=== PATIENT | male | born 1955 | race Hispanic/Latino ===

== ENCOUNTER → 2019-08-12 | Day surgery (SDC) | payer MEDICARE, OTHER ==
[2019-08-07 15:46] LABS: BASOPHILS # (AUTO) 0.1 (0.0-0.1); BASOPHILS % 0.5 % (0.0-1.0); EOSINOPHILS # (AUTO) 0.1 (0.0-0.4); EOSINOPHILS % 1.3 % (0.0-6.0); HEMATOCRIT 46.8 % (38.2-49.6); LYMPHOCYTES # (AUTO) 1.8 (1.0-3.2); LYMPHOCYTES % 16.4 % (18.0-39.1); MEAN CORPUSCULAR HEMOGLOBIN 29.2 pg (28-32); MEAN CORPUSCULAR HGB CONC 32.1 g/dL (31-35); MEAN CORPUSCULAR VOLUME 91.2 fL (81-99); MONOCYTES # (AUTO) 0.9 (0.2-0.8); NEUTROPHILS # (AUTO) 8.1 (2.1-6.9); NEUTROPHILS % 73.3 % (38.7-80.0); PLATELET COUNT 258 x10e3/uL (140-360); RED BLOOD COUNT 5.13 x10e6/uL (4.3-5.7); RED CELL DISTRIBUTION WIDTH 12.9 % (11.7-14.4)
--- NOTE | 2019-08-07 15:48 | Diagnostic Imaging Report ---
Exam: Chest radiograph Clinical History: Preoperative clearance Findings: The cardiomediastinal silhouette and lungs are normal. The regional skeleton and soft tissue are unremarkable. There is no evidence of pleural effusion or pneumothorax. Impression: No radiographic evidence of acute cardiopulmonary disease. Signed by: Dr. Barney Burgess MD on 08/07/2019 3:45 PM
[~2019-08-12] MED LIST: B&O 60MG R/S 60 MG SUPP PR ONE; DEXAMETHASONE SOD PHOS INJ 4 MG/ML VIAL ONE; DOXAZOSIN MESYLA2 MG PO; ETOMIDATE 2 MG/ML 10 ML INJ IV ONE; GENTAMICIN 80MG/NS 100 ML 200 ML IV ONE; IOPAMIDOL 300MG/ML 50ML INFUS..BTL IV ONE; LIDOCAINE HCL 2% LOCAL INJ 5 ML SDV VIAL INJ ONE; ONDANSETRON HCL INJ 2MG/ML 2ML 2 MG/ML VIAL ONE; PIPER-TAZ 3.375 GM 50 ML ONE; SEVOFLURANE INHAL SOLN 250 ML PEN BTL ONE; ZYRTEC10 M3 PO
[2019-08-12 11:50] VITALS: BP 127/75
--- NOTE | 2019-08-13 02:37 | Operative Report ---
DATE OF PROCEDURE: 08/12/2019 SURGEON: Ramirez Liu MD PREOPERATIVE DIAGNOSES: 1. Urinary tract infections. 2. History of urolithiasis. 3. Elevated PSA. POSTOPERATIVE DIAGNOSES: 1. Urinary tract infections. 2. History of urolithiasis. 3. Elevated PSA. 4. Urethral stricture of the urethral meatus. OPERATIONS PERFORMED: 1. Transrectal ultrasonography interpretation, no radiologist present. 2. Interpretation for ultrasonographic guidance for needle biopsy of the prostate, no radiologist present. 3. Transrectal needle biopsy of the prostate (separate procedure performed for the elevated PSA). 4. Cystourethroscopy with calibration and dilation of urethral stricture (separate procedure performed for the diagnosis of stricture). 5. Cystourethroscopy with bilateral ureteral catheterization and retrograde ureteropyelography (separate procedure performed for the urinary tract infections and history of urolithiasis. 6. Interpretation of retrograde ureteropyelography, no radiologist present. 7. Supervision of fluoroscopy, no radiologist present. ANESTHESIA: General. COMPLICATIONS: None. CLINICAL SUMMARY: Pb Fernández is a 63-year-old man with the above preoperative diagnoses. He is brought for the above procedures. He was prescribed Cardura 2 mg daily for his BPH. The patient is brought to the operating room for the above procedures. He is aware of the risks of bleeding, infection, injury to adjacent structures, need for additional procedures and elected to proceed. OPERATIVE PROCEDURE IN DETAIL: Informed consent was verified. Pb Fernández was properly identified and taken to the operating room, placed on the cystoscopy table in supine position. Anesthesia was uneventfully begun. The patient was then carefully gently repositioned in dorsal lithotomy position with all pressure points well padded. Transrectal ultrasonography was performed with normal sonography was performed. There were no suspicious lesions. There was mild hypoechogenicity of the left peripheral zone especially in the region of the mid and apex. There were diffuse calcifications also a relatively large anterior cyst on the right-hand side at the region of the mid prostate. The seminal vesicles were unremarkable. Some calcifications were noted. The prostate capsule was smooth. Prostate volume was estimated at 44 mL. With ultrasonographic guidance, needle biopsies of the prostate were taken. A total of 12 biopsies were taken. These were placed in 6 different containers, The containers were differentiated right versus left and base versus mid versus apex. The cystoscope sheath with the visual obturator in place could not be placed into the patient's urethral meatus. This was then calibrated to 18-Belgian in size and progressively dilated to 26-Belgian in size. This then allowed the cystoscope sheath inserted into the urethra, which was otherwise unremarkable. Down to the level of the sphincteric region, which was normal and through the patient's prostate bed, which was significant for visually obstructing bilobar BPH with kissing lateral lobes. Panendoscopy of the bladder revealed no suspicious mucosal lesions, no tumors, no stones, and no diverticula, normally positioned configured ureteral orifices were identified. Ureteral catheter was used to cannulate each ureter and retrograde ureteropyelography was performed. Interpretation of retrograde ureteropyelography contrast was instilled in a retrograde fashion bilaterally. There were no tumors, no stones, and no diverticula. Unobstructed drainage was observed bilaterally fluoroscopically. J-hooking was noted bilaterally. The patient's bladder was drained. Cystoscope was withdrawn. Belladonna and opium suppository were placed revealing a 40 g prostate, smooth and non-fluctuant without any nodules. The patient was uneventfully reversed from anesthesia, taken to recovery room in stable condition. Explicit postop instructions were given and we will follow the patient up in the office, at which point in time uroflowmetry and bladder ultrasonography will be performed. Ramirez Liu MD [place]/MODL /[id number]
== END | disposition home or self-care (01) ==
LOC: OR 07:48
PROVIDERS: ATTEND Urology
DX: C61 Malignant neoplasm of prostate (principal); N41.0 Acute prostatitis; N41.1 Chronic prostatitis; N39.0 Urinary tract infection, site not specified; Z87.442 Personal history of urinary calculi; N35.911 Unspecified urethral stricture, male, meatal; N42.89 Other specified disorders of prostate; N42.83 Cyst of prostate; N40.1 Benign prostatic hyperplasia with lower urinary tract symptoms; N13.8 Other obstructive and reflux uropathy; G47.33 Obstructive sleep apnea (adult) (pediatric); K21.9 Gastro-esophageal reflux disease without esophagitis; K57.90 Diverticulosis of intestine, part unspecified, without perforation or abscess without bleeding; I10 Essential (primary) hypertension; Z01.810 Encounter for preprocedural cardiovascular examination; Z01.812 Encounter for preprocedural laboratory examination; Z01.818 Encounter for other preprocedural examination; Z11.59 Encounter for screening for other viral diseases
CPT/HCPCS: 36415; 52281; 55700; 71046; 74420; 76872; 76998; 85025; 87635; 88305; 93005; C1758; J1100; J1580; J2001; J2405; J2543; Q9967

== ENCOUNTER 2019-11-16 10:58 | Inpatient (IN) | payer MEDICARE ==
[2019-11-11 12:51] LABS: BASOPHILS % 0.6 % (0.0-1.0); EOSINOPHILS # (AUTO) 0.2 (0.0-0.4); EOSINOPHILS % 3.3 % (0.0-6.0); HEMATOCRIT 43.4 % (38.2-49.6); HEMOGLOBIN 14.1 g/dL (14.0-18.0); LYMPHOCYTES # (AUTO) 1.5 (1.0-3.2); LYMPHOCYTES % 22.1 % (18.0-39.1); MEAN CORPUSCULAR HEMOGLOBIN 29.4 pg (28-32); MEAN CORPUSCULAR HGB CONC 32.5 g/dL (31-35); MEAN CORPUSCULAR VOLUME 90.6 fL (81-99); MONOCYTES # (AUTO) 0.5 (0.2-0.8); MONOCYTES % 7.9 % (4.4-11.3); NEUTROPHILS # (AUTO) 4.3 (2.1-6.9); NEUTROPHILS % 65.6 % (38.7-80.0); PLATELET COUNT 216 x10e3/uL (140-360); RED BLOOD COUNT 4.79 x10e6/uL (4.3-5.7); RED CELL DISTRIBUTION WIDTH 12.9 % (11.7-14.4)
[2019-11-11 13:09] LABS: ALANINE AMINOTRANSFERASE 31 IU/L (0-55); ALBUMIN 3.9 g/dL (3.5-5.0); ALBUMIN/GLOBULIN RATIO 1.2 (0.8-2.0); ALKALINE PHOSPHATASE 74 IU/L (40-150); ANION GAP 16.1 mmol/L (8-16); BLOOD UREA NITROGEN 28 mg/dL (7-26); BUN/CREATININE RATIO 33 (6-25); CALCIUM 8.9 mg/dL (8.4-10.2); CARBON DIOXIDE 21 mmol/L (22-29); CHLORIDE 110 mmol/L (98-107); CREATININE, SERUM 0.84 mg/dL (0.72-1.25); EST GLOMERULAR FILTRATION RATE > 60 ML/MIN (60-); GLUCOSE 117 mg/dL (74-118); POTASSIUM 4.1 mmol/L (3.5-5.1); SODIUM 143 mmol/L (136-145)
--- NOTE | 2019-11-11 13:51 | Diagnostic Imaging Report ---
EXAMINATION: CHEST 2 VIEWS INDICATION: Pre-operative COMPARISON: Chest radiograph 08/07/2019 FINDINGS: LINES/TUBES:None LUNGS:The lungs are well-inflated. No focal consolidation or pulmonary edema. PLEURA:No pleural effusion or pneumothorax. MEDIASTINUM:The cardiomediastinal silhouette appears normal in size and shape. Atherosclerotic calcifications of the thoracic aorta. BONES/SOFT TISSUES:No acute osseous injury. ABDOMEN:No free air under the diaphragm. IMPRESSION: No focal pneumonia or pulmonary edema. Signed by: Sarah Vaughn MD on 11/11/2019 1:47 PM
[~2019-11-16] VITALS: Ht 170.2 cm; Wt 93.9 kg
[~2019-11-16 10:58] MED LIST changes: -B&O 60MG R/S 60 MG SUPP PR ONE; -DEXAMETHASONE SOD PHOS INJ 4 MG/ML VIAL ONE; -ETOMIDATE 2 MG/ML 10 ML INJ IV ONE; -GENTAMICIN 80MG/NS 100 ML 200 ML IV ONE; -IOPAMIDOL 300MG/ML 50ML INFUS..BTL IV ONE; -LIDOCAINE HCL 2% LOCAL INJ 5 ML SDV VIAL INJ ONE; -ONDANSETRON HCL INJ 2MG/ML 2ML 2 MG/ML VIAL ONE; -PIPER-TAZ 3.375 GM 50 ML ONE; -SEVOFLURANE INHAL SOLN 250 ML PEN BTL ONE
[2019-11-16] MEDS ORDERED: vitamin d3 PO (11:16)
[2019-11-16] MEDS ORDERED: CENTRUM SILVER1 EAC6 PO (11:17)
[2019-11-16] MEDS ORDERED: ZYRTEC10 M3 PO (11:17)
[2019-11-16] MEDS ORDERED: citracal PO (11:17)
[2019-11-16] MEDS ORDERED: MEGARED OMEGA-1 EAC3 PO (11:18)
[2019-11-16] MEDS ORDERED: GARLIC1 EAC1 PO (11:18)
[2019-11-16] MEDS ORDERED: CARDURA4 MG PO (11:19)
[2019-11-16] MEDS ORDERED: CEFAZOLIN SOD 1 GM/NS 50ML 50 ML IV ONE (11:53)
[2019-11-16] MEDS ORDERED: SEVOFLURANE INHAL SOLN 250 ML PEN BTL ONE (14:35)
[2019-11-16] MEDS ORDERED: PROPOFOL IV EMULSION 10 MG/ML 20 ML VIAL ONE (14:35)
[2019-11-16] MEDS ORDERED: ETOMIDATE 2 MG/ML 10 ML INJ IV ONE (14:35)
[2019-11-16] MEDS ORDERED: GLYCOPYRROLATE INJ 0.2 MG/ML VIAL ONE (14:35)
[2019-11-16] MEDS ORDERED: LIDOCAINE HCL 2% JELLY 5 ML TUBE ONE (14:35)
[2019-11-16] MEDS ORDERED: ROCURONIUM BROMIDE 10 MG/ML 5ML VIAL IV ONE (14:35)
[2019-11-16] MEDS ORDERED: ONDANSETRON HCL INJ 2MG/ML 2ML 2 MG/ML VIAL ONE (14:35)
[2019-11-16] MEDS ORDERED: DEXAMETHASONE SOD PHOS INJ 4 MG/ML VIAL ONE (14:35)
[2019-11-16] MEDS ORDERED: NEOSTIGMINE 1 MG/ML 10ML VIAL ONE (14:35)
[2019-11-16] MEDS ORDERED: DIPHENHYDRAMINE HCL INJ 50 MG/ML VIAL IM PRN (15:30)
[2019-11-16] MEDS ORDERED: NALOXONE HCL INJ 0.4 MG/ML AMP IV PRN (15:30)
[2019-11-16] MEDS ORDERED: ACETAMINOPHEN 1000 MG/100 ML IV PRN (15:30)
[2019-11-16] MEDS ORDERED: ONDANSETRON HCL INJ 2MG/ML 2ML 2 MG/ML VIAL IV PRN (15:30)
[2019-11-16] MEDS: SODIUM CHLORIDE 0.9% 250ML IRRIG IR SCH ×3 (16:00→23:45)
[2019-11-16] MEDS: MORPHINE SULFATE 1 MG/ML 30ML PCA IV PRN (16:16)
[2019-11-16 16:25] LABS: BASOPHILS # (AUTO) 0.1 (0.0-0.1); BASOPHILS % 0.3 % (0.0-1.0); EOSINOPHILS % 0.3 % (0.0-6.0); HEMATOCRIT 41.2 % (38.2-49.6); HEMOGLOBIN 13.1 g/dL (14.0-18.0); LYMPHOCYTES # (AUTO) 1.6 (1.0-3.2); LYMPHOCYTES % 10.4 % (18.0-39.1); MEAN CORPUSCULAR HEMOGLOBIN 29.2 pg (28-32); MEAN CORPUSCULAR HGB CONC 31.8 g/dL (31-35); MONOCYTES # (AUTO) 0.2 (0.2-0.8); MONOCYTES % 1.5 % (4.4-11.3); NEUTROPHILS # (AUTO) 13.7 (2.1-6.9); PLATELET COUNT 194 x10e3/uL (140-360); RED BLOOD COUNT 4.48 x10e6/uL (4.3-5.7); RED CELL DISTRIBUTION WIDTH 12.8 % (11.7-14.4)
[2019-11-16 16:42] LABS: ANION GAP 14.8 mmol/L (8-16); BLOOD UREA NITROGEN 33 mg/dL (7-26); BUN/CREATININE RATIO 41 (6-25); CALCIUM 8.1 mg/dL (8.4-10.2); CARBON DIOXIDE 21 mmol/L (22-29); CHLORIDE 108 mmol/L (98-107); CREATININE, SERUM 0.81 mg/dL (0.72-1.25); EST GLOMERULAR FILTRATION RATE > 60 ML/MIN (60-); GLUCOSE 151 mg/dL (74-118); POTASSIUM 3.8 mmol/L (3.5-5.1); SODIUM 140 mmol/L (136-145)
--- NOTE | 2019-11-16 16:55 | NUR ---
RECEIVED PATIENT FROM PACU. PATIENT A/O X3, EVEN RESPIRATIONS ON 2LNC. VITAL SIGNS STABLE. KENNEDY IN PLACE- STRAW URINE. RLQ STEPH DRAIN. ABDOMINAL DRESSING C/D/I. RIGHT NARE NGT LCWS. SCD'S/SALUD'S BILATERAL. ORIENTED PATIENT TO ROOM AND CALL LIGHT. BED LOW, WHEELS LOCKED, SIDE RAILS X2. CALL LIGHT IN REACH WILL CONTINUE TO MONITOR PATIENT.
[2019-11-16 17:00] VITALS: BP 110/61
[2019-11-16] MEDS: DOCUSATE SODIUM 100 MG CAP PO SCH (17:00)
[2019-11-16 17:18] VITALS: BP 110/61
[2019-11-16] MEDS ORDERED: FENTANYL CITRATE/PF 100MCG/2 ML INJ ONE (17:20)
[2019-11-16] MEDS ORDERED: MORPHINE SULFATE INJ 10 MG/ML ONE (17:20)
[2019-11-16] MEDS ORDERED: MIDAZOLAM HCL 2 MG/2 ML VIAL ONE (17:20)
[2019-11-16 17:30] VITALS: BP 110/61
[2019-11-16] MEDS: D5.45%NS/KCL 20MEQ 1,000 ML IV SCH ×2 (18:09→23:53)
--- NOTE | 2019-11-16 18:39 | Operative Report ---
DATE OF PROCEDURE: 11/16/2019 SURGEON: Ramirez Liu MD PREOPERATIVE DIAGNOSES: 1. High-grade prostate cancer. 2. Obstructive benign prostatic hypertrophy. POSTOPERATIVE DIAGNOSES: 1. High-grade prostate cancer. 2. Obstructive benign prostatic hypertrophy. 3. Cystotomy. OPERATION PERFORMED: 1. Cystourethroscopy (separate procedure performed for the obstructive benign prostatic hypertrophy). 2. Bilateral pelvic lymph node dissection (separate procedure performed for the prostate cancer). 3. Cystorectocele the (separate procedure performed for the cystotomy). JANITOR HELPER: Dr. Pito Liu. ANESTHESIA: General. CLINICAL SUMMARY: Pb Fernández is a 64-year-old man with high-grade prostate cancer. He has Towson grade 4 + 4 = 8 on the left and 3 + 3 = 6 on the right. The patient has a BPH with prostate size of 44 mL by transrectal sonography. He had a previous laparoscopic inguinal herniorrhaphy on the right-hand side. The patient is brought to the operating room today for pelvic lymphadenectomy and cystoscopy. He is aware of the risks of bleeding, infection, injury to adjacent structures, need for additional procedures and elected to proceed. He understands this procedure is diagnostic and not curative. It will affect our treatment plan and that if his lymph nodes are positive, radiotherapy will not be performed. The patient understood the risks and elected to proceed. He has already begun Lupron therapy. OPERATIVE PROCEDURE IN DETAIL: Informed consent was verified. Pb Fernández was properly identified, taken to the operating room, and placed on the operating table in supine position. Anesthesia was uneventfully begun. The patient's genitalia and abdomen were shaved, prepared, and draped in usual sterile fashion. A flexible cystoscope was inserted under direct vision, was guided down the unremarkable urethra through the normal sphincteric region through the prostate bed, which was significant for visually obstructing bilobar prostatic hypertrophy. Panendoscopy of the bladder revealed no suspicious mucosal lesions, no tumors, no stones, no diverticula. Normally positioned configured ureteral orifices were identified. There were grade 1 trabeculations. A Contreras catheter was placed. A midline incision was made carried through the scar that is just inferior to the umbilicus. We went through the abdominal wall fascia. We split the rectus muscles in the midline. There, we encountered the mesh. The mesh seemed to pass beyond midline towards the left side. The mesh was adherent to all the surrounding tissues. An extraperitoneal approach was impossible as the peritoneum was thinned and it was stuck into the mesh. We dissected at the level of the mesh and on the right-hand side. As we dissected across the mesh, we noticed that a cystotomy was performed. The cystostomy was unavoidable as the bladder was incorporated and tented up to the mesh and the bladder where it was attached to the wall was extremely thin. All the tissues were adherent and were really not discernible from each other. We identified a cystotomy. This allowed us to dissect the bladder free from the remainder of the mesh and from the surrounding adherent tissues and the bladder was closed in 2 layers utilizing 2-0 chromic sutures. The Contreras catheter was exchanged to a 24-[place] Contreras catheter with 15 mL of water placed in the 10 mL balloon. It was irrigated to and fro to ensure it worked properly and there was no leak. We then proceeded with completing the peritoneotomy. Peritoneotomies were performed bilaterally, where it was impossible to dissect the peritoneum off the iliac vessels and the region. We then utilized a self-retaining retractor. We packed back the intestines. We incised the peritoneum posteriorly in order to expose the iliac vessels. We obtained lymphatic tissue posterior to both external iliac veins. The obturator nerves were identified bilaterally in order to avoid injuring them. Hemoclips were utilized to control lymphatic channels. Copious irrigation was performed. Surgicel was placed in both obturator fossae. A David drain was placed through a separate stab incision, secured to the skin with a nylon suture. It was placed in such a way as to drain both obturator fossae as well as anterior to the bladder. We verified that the nasogastric tube that we asked the anesthesiologist to place due to the fact the peritoneotomy was performed and intestines needed to be packed away was in good position in the stomach. The omentum was brought down to cover the pelvis region. The rectus muscles were approximated with interrupted Vicryl suture. The fascia was approximated with heavy Vicryl suture in interrupted [id number] fashion. The skin was approximated with skin luz. Sterile dressings were applied. After irrigating the bladder via the catheter to ensure there were no clots, the patient was uneventfully reversed from anesthesia and taken to recovery room in stable condition. The unavoidable complication of cystotomy was caused rather severe reaction of the intraperitoneally placed mesh in performing the laparoscopic hernia repair. The cystotomy was recognized and repaired without complication. Estimated blood loss was 150 mL. Sponge, needle, and instrument counts were correct x2 at the end of the case. Ramirez Liu MD [facility]/MODL /[id number] cc: Bucky England MD
[2019-11-16 20:00] VITALS: BP 151/92
[2019-11-16] MEDS: CEFAZOLIN SOD 1 GM/NS 50ML 50 ML IV SCH (22:00)
[2019-11-17] VITALS (7 sets, daily range): BP systolic 110–145; BP diastolic 57–77
[2019-11-17] MEDS: SODIUM CHLORIDE 0.9% 250ML IRRIG IR SCH ×2 (03:35→07:30)
[2019-11-17] MEDS: CEFAZOLIN SOD 1 GM/NS 50ML 50 ML IV SCH ×3 (05:19→22:14)
[2019-11-17 05:42] LABS: BASOPHILS % 0.1 % (0.0-1.0); EOSINOPHILS % 0.3 % (0.0-6.0); HEMATOCRIT 41.3 % (38.2-49.6); HEMOGLOBIN 13.5 g/dL (14.0-18.0); LYMPHOCYTES % 8.1 % (18.0-39.1); MEAN CORPUSCULAR HEMOGLOBIN 30.1 pg (28-32); MEAN CORPUSCULAR HGB CONC 32.7 g/dL (31-35); MONOCYTES # (AUTO) 0.8 (0.2-0.8); MONOCYTES % 6.4 % (4.4-11.3); NEUTROPHILS # (AUTO) 10.1 (2.1-6.9); NEUTROPHILS % 84.8 % (38.7-80.0); PLATELET COUNT 195 x10e3/uL (140-360); RED BLOOD COUNT 4.49 x10e6/uL (4.3-5.7); RED CELL DISTRIBUTION WIDTH 12.7 % (11.7-14.4)
[2019-11-17 06:30] LABS: ANION GAP 13.1 mmol/L (8-16); BLOOD UREA NITROGEN 22 mg/dL (7-26); BUN/CREATININE RATIO 31 (6-25); CALCIUM 8.1 mg/dL (8.4-10.2); CARBON DIOXIDE 20 mmol/L (22-29); CHLORIDE 106 mmol/L (98-107); CREATININE, SERUM 0.72 mg/dL (0.72-1.25); EST GLOMERULAR FILTRATION RATE > 60 ML/MIN (60-); GLUCOSE 150 mg/dL (74-118); POTASSIUM 4.1 mmol/L (3.5-5.1); SODIUM 135 mmol/L (136-145)
--- NOTE | 2019-11-17 07:00 | NUR ---
RECEIVED BEDSIDE SHIFT REPORT FROM OFF GOING NIGHT NURSE. PATIENT IN STABLE CONDITION, NO S/S OF DISTRESS NOTED. RESPIRATIONS EVEN AND NON-LABORED. PATIENT ON FREIGHT WEIGHER PUMP. IV FLUIDS INFUSING, SITE ASYMPTOMATIC AND PATENT, TRANSPARENT DRESSING C/D/I. NG TUBE APPLIED TO LOW INTERMITTED SUCTION. KENNEDY IN PLACE AND PATENT. SCDs APPLIED. BED IN LOWEST POSITION AND LOCKED, SIDE RAILS X 2 , NON SKID SOCKS APPLIED. CALL LIGHT WITHIN REACH.
--- NOTE | 2019-11-17 07:03 | NUR ---
Bedside report and walking rounds completed with oncoming nurse. Patient in bed with call light within reach No issues or concerns noted.
[2019-11-17] MEDS ORDERED: SODIUM CHLORIDE 0.9% 250ML 0 ML ONE (07:51)
[2019-11-17] MEDS: DOCUSATE SODIUM 100 MG CAP PO SCH ×2 (08:24→16:34)
--- NOTE | 2019-11-17 08:24 | NUR ---
DISCONTINUED THE PATIENT'S NG TUBE THIS MORNING . PATIENT TOLERATED THE REMOVAL WELL. NO PAIN VOICED.NO S/S OF DISTRESS NOTED.
--- NOTE | 2019-11-17 10:11 | NUR ---
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 Pt underwent B/L PLND. Now recovering; pain controlled; PMH: Prostate cancer dx 09/2019, HTN, GERD, obesity, prostate , hx cigs Pshx: hernia repair Allergies; see emr Fh/SH; ; hx cigs meds; see MAR ROS; no f/c/s/N/V/D/VILLANUEVA/cp/sob/skin rash/confusion/vision changes/mood changes v/s; revd PE tired appearing anicteric ns1s2 mod bs soft; dressing in place; STEPH drain in place right pelvis; mederos with blood tinged urine scd; no edema skin dry n. affect labs/meds revd A/P: Prostate cancer - s/p Pelvic lymphadectomy with B/L PLND; STEPH drain in place; Obesity- screen for DM BMI 32.4 Nicotine dependence in remission- f/u outpt Pelvic pain- prn pain meds Prop: scd DIspo; monitor; f/u labs; TONIA ALONZO MD, PHD.
[2019-11-17] MEDS: D5.45%NS/KCL 20MEQ 1,000 ML IV SCH ×2 (10:37→18:17)
[2019-11-17 10:45] LABS: CHOL/HDL RATIO 3.2 (3.9-4.7)
--- NOTE | 2019-11-17 14:08 | NUR ---
WOUND CARE CONSULT PER DR. Sarah CARDOSO FOR OSTOMY TRAINING AND TEACHING WITH PATIENT AND ORDERS FOR OR PATIENT TO STATE PERISTOMAL SKIN CARE AND SAFETY AND ALSO INDEPENDENTLY CHANGE APPLIANCE TO LEFT LOWER ABDOMINAL QUADRANT STOMA PRIOR TO DISCHARGE TOMORROW PATIENT IS TO FOLLOW UP WITH OUTPATIENT WOUND CARE CENTER SATURDAY FOR FOLLOW UP WITH OSTOMY CARE AND ASSESSMENT OF SOURAV STOMAL AREA THESE EXTRA MEASURES ARE RELATED TO IRREGULAR STOMAL INCISION AND SHAPE AND SIZE OF STOMA/PERISTOMAL AREA POSES CHALLENGE TO PROPER APPLIANCE FITTING PATIENT AND AT BEDSIDE PRIMARILY NEPALI SPEAKING TRANSLATION WAS USED DURING OSTOMY TRAINING AND TEACHING INSTRUCTION WITH REPEAT OF SARKAR FACTORS AND STATEMENT OF UNDERSTANDING FROM AND PATIENT MADE STOMAL PATTERN MADE AND DEMONSTRATION OF APPLIANCE APPLICATION PERFORMED AND PATIENT MANIPULATED PARTS TO APPLIANCE AND PROPER SEAL AND CLOSURE PATIENT AND DEMONSTRATED PROPER EMPTYING OF APPLIANCE ARRANGEMENTS AND PLANS FOR FOLLOW UP VISIT WITH PATIENT AND FOR MORE OSTOMY TEACHING TO BE PERFORMED AT BEDSIDE TOMORROW PRIOR TO DISCHARGE Addendum: 11/17/19 at 1446 by Swapnil Mclean RN Amended: Links added. Addendum: 11/17/19 at 1554 by Swapnil Mclean RN PLEASE DISREGARD PREVIOUS NOTE REFERRING TO OSTOMY TRAINING WAS MISTAKEN ENTRY
[2019-11-17] MEDS: CHLORASEPTIC SPRAY 177 ML BTL MM PRN (15:39)
--- NOTE | 2019-11-17 19:26 | NUR ---
COMPLETED BEDSIDE SHIFT REPORT AND ROUNDING WITH THE ONCOMING NIGHT NURSE. PATIENT IN STABLE CONDITION, NO S/S OF DISTRESS NOTED. RESPIRATIONS EVEN AND NON-LABORED. PATIENT ON PHYSICIAN ASSISTANT PUMP. IV FLUIDS INFUSING, SITE ASYMPTOMATIC AND PATENT, TRANSPARENT DRESSING C/D/I. KENNEDY IN PLACE AND PATENT. SCDs APPLIED. BED IN LOWEST POSITION AND LOCKED, SIDE RAILS X 2 , NON SKID SOCKS APPLIED. CALL LIGHT WITHIN REACH.
[2019-11-17] MEDS ORDERED: SODIUM CHLORIDE 0.9% 250ML 250 ML ONE (22:36)
[2019-11-18] VITALS (7 sets, daily range): BP systolic 132–170; BP diastolic 66–84
[2019-11-18] MEDS: CHLORASEPTIC SPRAY 177 ML BTL MM PRN (00:34)
[2019-11-18] MEDS: D5.45%NS/KCL 20MEQ 1,000 ML IV SCH ×4 (01:15→18:29)
[2019-11-18] MEDS: MORPHINE SULFATE 1 MG/ML 30ML PCA IV PRN (01:15)
[2019-11-18] MEDS: CEFAZOLIN SOD 1 GM/NS 50ML 50 ML IV SCH ×3 (05:23→22:28)
--- NOTE | 2019-11-18 05:32 | NUR ---
KENNEDY CARE PROVIDED VIA CASTILE SOAP WIPES.
[2019-11-18 06:02] LABS: BASOPHILS # (AUTO) 0.1 (0.0-0.1); BASOPHILS % 0.5 % (0.0-1.0); EOSINOPHILS # (AUTO) 0.2 (0.0-0.4); EOSINOPHILS % 2.3 % (0.0-6.0); HEMATOCRIT 42.5 % (38.2-49.6); HEMOGLOBIN 13.6 g/dL (14.0-18.0); LYMPHOCYTES # (AUTO) 1.7 (1.0-3.2); LYMPHOCYTES % 16.1 % (18.0-39.1); MEAN CORPUSCULAR HEMOGLOBIN 29.2 pg (28-32); MEAN CORPUSCULAR VOLUME 91.4 fL (81-99); MONOCYTES # (AUTO) 0.9 (0.2-0.8); MONOCYTES % 8.2 % (4.4-11.3); NEUTROPHILS # (AUTO) 7.6 (2.1-6.9); NEUTROPHILS % 72.5 % (38.7-80.0); PLATELET COUNT 196 x10e3/uL (140-360); RED BLOOD COUNT 4.65 x10e6/uL (4.3-5.7); RED CELL DISTRIBUTION WIDTH 12.7 % (11.7-14.4)
[2019-11-18 06:21] LABS: ANION GAP 14.2 mmol/L (8-16); BLOOD UREA NITROGEN 13 mg/dL (7-26); BUN/CREATININE RATIO 17 (6-25); CALCIUM 8.2 mg/dL (8.4-10.2); CARBON DIOXIDE 23 mmol/L (22-29); CHLORIDE 103 mmol/L (98-107); CREATININE, SERUM 0.77 mg/dL (0.72-1.25); EST GLOMERULAR FILTRATION RATE > 60 ML/MIN (60-); GLUCOSE 114 mg/dL (74-118); POTASSIUM 4.2 mmol/L (3.5-5.1); SODIUM 136 mmol/L (136-145)
--- NOTE | 2019-11-18 07:00 | NUR ---
RECEIVED BEDSIDE SHIFT REPORT FROM OFF GOING NIGHT NURSE. PATIENT IN STABLE CONDITION, NO S/S OF DISTRESS NOTED. RESPIRATIONS EVEN AND NON-LABORED. PATIENT ON LSAT INSTRUCTOR PUMP. IV FLUIDS INFUSING, SITE ASYMPTOMATIC AND PATENT, TRANSPARENT DRESSING C/D/I. KENNEDY IN PLACE AND PATENT. SCDs APPLIED. BED IN LOWEST POSITION AND LOCKED, SIDE RAILS X 2 , NON SKID SOCKS APPLIED. CALL LIGHT WITHIN REACH.
--- NOTE | 2019-11-18 07:04 | NUR ---
IM- progress note O/N see below v/s; revd PE tired appearing anicteric ns1s2 mod bs soft; dressing in place; STEPH drain in place right pelvis; mederos with blood tinged urine scd; no edema skin dry n. affect labs/meds revd A/P: Prostate cancer - s/p Pelvic lymphadectomy with B/L PLND; STEPH drain in place; Obesity- screen for DM BMI 32.4 Nicotine dependence in remission- f/u outpt Pelvic pain- prn pain meds Prop: scd DIspo; monitor; f/u labs; 9-2 Hba1c/LDL 5.8/91; PreDM- use ADA diet; recheck in 3 months; TONIA ALONZO MD, PHD.
--- NOTE | 2019-11-18 07:18 | NUR ---
REPORT GIVEN TO DAYSHIFT NURSE. ALERT AND RESTING IN BED. NO SIGNS IV INFILTRATION. COMMUNICATIONS DEPARTMENT HEAD AT BEDSIDE WITH COMMUNICATIONS DEPARTMENT HEAD BUTTON WITHIN REACH. BED LOCKED AND IN LOW POSITION. CALL LIGHT WITHIN REACH.
[2019-11-18] MEDS: DOCUSATE SODIUM 100 MG CAP PO SCH ×2 (09:35→16:35)
--- NOTE | 2019-11-18 10:14 | NUR ---
per Dr. Recio do not advance diet until he advances diet.
[2019-11-18] MEDS ORDERED: BISACODYL 10 MG SUPP PR ONE (12:30)
--- NOTE | 2019-11-18 13:48 | NUR ---
client support associate pump discontinued per MD orders .
[2019-11-18] MEDS ORDERED: [UNRECOGNIZED DRUG - REMARK] NS PRN (14:15)
[2019-11-18] MEDS ORDERED: NON-FORMULARY MEDICATION NS PRN (14:15)
[2019-11-18] MEDS ORDERED: LORATADINE 10 MG TAB PO PRN (14:15)
[2019-11-18] MEDS: PANTOPRAZOLE SOD 40 MG TABEC PO SCH (17:34)
--- NOTE | 2019-11-18 17:41 | NUR ---
Skilled PT services not indicated at this time since patient is Mod I in functional mobility. thank you. Addendum: 11/18/19 at 1742 by Be monreal PT Amended: Links added.
[2019-11-18] MEDS: ACETAMINOPHEN/CODEINE 300MG - 30MG TAB PO PRN (18:33)
--- NOTE | 2019-11-18 19:10 | NUR ---
COMPLETED BEDSIDE SHIFT REPORT AND ROUNDING WITH THE ONCOMING NIGHT NURSE. PATIENT IN STABLE CONDITION, NO S/S OF DISTRESS NOTED. RESPIRATIONS EVEN AND NON-LABORED. IV FLUIDS INFUSING, SITE ASYMPTOMATIC AND PATENT, TRANSPARENT DRESSING C/D/I. KENNEDY IN PLACE AND PATENT. SCDs APPLIED. BED IN LOWEST POSITION AND LOCKED, SIDE RAILS X 2 , NON SKID SOCKS APPLIED. CALL LIGHT WITHIN REACH.
[2019-11-18] MEDS ORDERED: SODIUM CHLORIDE 0.9% 250ML 250 ML ONE (20:22)
[2019-11-19] VITALS (9 sets, daily range): BP systolic 127–160; BP diastolic 52–90
[2019-11-19] MEDS: BISACODYL 10 MG SUPP PR PRN (00:35)
[2019-11-19] MEDS: D5.45%NS/KCL 20MEQ 1,000 ML IV SCH ×3 (03:00→21:53)
--- NOTE | 2019-11-19 03:59 | NUR ---
KENNEDY CARE PROVIDED VIA CASTILE SOAP WIPES.
[2019-11-19 05:18] LABS: BASOPHILS % 0.3 % (0.0-1.0); EOSINOPHILS # (AUTO) 0.2 (0.0-0.4); EOSINOPHILS % 1.6 % (0.0-6.0); HEMATOCRIT 42.8 % (38.2-49.6); HEMOGLOBIN 13.9 g/dL (14.0-18.0); LYMPHOCYTES # (AUTO) 1.4 (1.0-3.2); LYMPHOCYTES % 10.4 % (18.0-39.1); MEAN CORPUSCULAR HEMOGLOBIN 29.2 pg (28-32); MEAN CORPUSCULAR HGB CONC 32.5 g/dL (31-35); MEAN CORPUSCULAR VOLUME 89.9 fL (81-99); MONOCYTES % 7.1 % (4.4-11.3); NEUTROPHILS # (AUTO) 10.9 (2.1-6.9); NEUTROPHILS % 80.1 % (38.7-80.0); PLATELET COUNT 215 x10e3/uL (140-360); RED BLOOD COUNT 4.76 x10e6/uL (4.3-5.7); RED CELL DISTRIBUTION WIDTH 12.4 % (11.7-14.4)
[2019-11-19] MEDS: CEFAZOLIN SOD 1 GM/NS 50ML 50 ML IV SCH ×3 (05:19→21:52)
[2019-11-19] MEDS: ACETAMINOPHEN/CODEINE 300MG - 30MG TAB PO PRN ×3 (05:25→22:55)
[2019-11-19 05:40] LABS: ANION GAP 14.3 mmol/L (8-16); BLOOD UREA NITROGEN 8 mg/dL (7-26); BUN/CREATININE RATIO 11 (6-25); CALCIUM 8.6 mg/dL (8.4-10.2); CARBON DIOXIDE 22 mmol/L (22-29); CHLORIDE 105 mmol/L (98-107); CREATININE, SERUM 0.76 mg/dL (0.72-1.25); EST GLOMERULAR FILTRATION RATE > 60 ML/MIN (60-); GLUCOSE 132 mg/dL (74-118); POTASSIUM 4.3 mmol/L (3.5-5.1); SODIUM 137 mmol/L (136-145)
--- NOTE | 2019-11-19 06:28 | NUR ---
IM- progress note O/N see below v/s; revd PE tired appearing anicteric ns1s2 mod bs soft; luz on abdomen; STEPH drain in place right pelvis; mederos with blood tinged urine scd; no edema skin dry n. affect labs/meds revd A/P: Prostate cancer - s/p Pelvic lymphadectomy with B/L PLND; STEPH drain in place; Obesity- screen for DM BMI 32.4 Nicotine dependence in remission- f/u outpt Pelvic pain- prn pain meds Prop: scd DIspo; monitor; f/u labs; 9-2 Hba1c/LDL 5.8/91; PreDM- use ADA diet; recheck in 3 months; 9-3 Uncontrolled HTN- titrate meds; Urine output good. on liq diet. LN reactive only; no malignancy; Likely ileus- reduce narcotics; encouraged to ambulate in room; stool softners, rec'd rectal suppositories yesterday; monitor closely today; TONIA ALONZO MD, PHD.
--- NOTE | 2019-11-19 07:00 | NUR ---
RECEIVED BEDSIDE SHIFT REPORT FROM OFF GOING NIGHT NURSE. PATIENT IN STABLE CONDITION, NO S/S OF DISTRESS NOTED. RESPIRATIONS EVEN AND NON-LABORED. IV FLUIDS INFUSING, SITE ASYMPTOMATIC AND PATENT, TRANSPARENT DRESSING C/D/I. KENNEDY IN PLACE AND PATENT. SCDs APPLIED. BED IN LOWEST POSITION AND LOCKED, SIDE RAILS X 2 , NON SKID SOCKS APPLIED. CALL LIGHT WITHIN REACH.
--- NOTE | 2019-11-19 07:05 | NUR ---
REPORT GIVEN TO DAYSHIFT NURSE. ALERT AND RESTING IN BED. NO SIGNS IV INFILTRATION. BED LOCKED AND IN LOW POSITION. CALL LIGHT WITHIN REACH.
[2019-11-19] MEDS ORDERED: SENNA-S TABLET PO SCH (07:30)
[2019-11-19] MEDS: PANTOPRAZOLE SOD 40 MG TABEC PO SCH (08:22)
[2019-11-19] MEDS: DOCUSATE SODIUM LIQD 100 MG/10 ML UDC PO SCH ×2 (08:22→17:29)
[2019-11-19] MEDS ORDERED: DOCUSATE SODIUM LIQD 100 MG/10 ML UDC NG SCH (09:00)
--- NOTE | 2019-11-19 09:45 | NUR ---
PATIENT UP AMBULATING IN THE HALLWAY.
--- NOTE | 2019-11-19 10:24 | NUR ---
DR. ALONZO NOTIFIED ABOUT AN INCREASE IN THE PATIENTS WBC INCREASE, AWAITING ORDERS.
--- NOTE | 2019-11-19 19:15 | NUR ---
COMPLETED BEDSIDE SHIFT REPORT AND ROUNDING WITH THE ONCOMING NIGHT NURSE. PATIENT IN STABLE CONDITION, NO S/S OF DISTRESS NOTED. RESPIRATIONS EVEN AND NON-LABORED. IV FLUIDS INFUSING, SITE ASYMPTOMATIC AND PATENT, TRANSPARENT DRESSING C/D/I. KENNEDY IN PLACE AND PATENT. PATIENT PASSING GAS AWAITING BM. SCDs APPLIED. BED IN LOWEST POSITION AND LOCKED, SIDE RAILS X 2 , NON SKID SOCKS APPLIED. CALL LIGHT WITHIN REACH.
[2019-11-20] VITALS (7 sets, daily range): BP systolic 131–175; BP diastolic 71–88
[2019-11-20] MEDS: CEFAZOLIN SOD 1 GM/NS 50ML 50 ML IV SCH ×3 (05:10→21:08)
[2019-11-20 06:02] LABS: BASOPHILS # (AUTO) 0.1 (0.0-0.1); BASOPHILS % 0.4 % (0.0-1.0); EOSINOPHILS # (AUTO) 0.3 (0.0-0.4); EOSINOPHILS % 2.1 % (0.0-6.0); HEMATOCRIT 43.2 % (38.2-49.6); HEMOGLOBIN 14.2 g/dL (14.0-18.0); LYMPHOCYTES # (AUTO) 1.3 (1.0-3.2); LYMPHOCYTES % 9.4 % (18.0-39.1); MEAN CORPUSCULAR HEMOGLOBIN 29.6 pg (28-32); MEAN CORPUSCULAR HGB CONC 32.9 g/dL (31-35); MONOCYTES # (AUTO) 0.8 (0.2-0.8); MONOCYTES % 5.6 % (4.4-11.3); NEUTROPHILS # (AUTO) 11.5 (2.1-6.9); NEUTROPHILS % 81.9 % (38.7-80.0); PLATELET COUNT 269 x10e3/uL (140-360); RED CELL DISTRIBUTION WIDTH 12.5 % (11.7-14.4)
[2019-11-20 06:22] LABS: BLOOD UREA NITROGEN 9 mg/dL (7-26); BUN/CREATININE RATIO 10 (6-25); CARBON DIOXIDE 20 mmol/L (22-29); CHLORIDE 106 mmol/L (98-107); CREATININE, SERUM 0.87 mg/dL (0.72-1.25); EST GLOMERULAR FILTRATION RATE > 60 ML/MIN (60-); GLUCOSE 204 mg/dL (74-118); SODIUM 139 mmol/L (136-145)
--- NOTE | 2019-11-20 06:41 | NUR ---
IM- progress note O/N see below v/s; revd PE tired appearing anicteric ns1s2 mod bs soft; luz on abdomen; STEPH drain in place right pelvis; mederos with blood tinged urine scd; no edema skin dry n. affect labs/meds revd A/P: Prostate cancer - s/p Pelvic lymphadectomy with B/L PLND; STEPH drain in place; Obesity- screen for DM BMI 32.4 Nicotine dependence in remission- f/u outpt Pelvic pain- prn pain meds Prop: scd DIspo; monitor; f/u labs; 9-2 Hba1c/LDL 5.8/91; PreDM- use ADA diet; recheck in 3 months; 9-3 Uncontrolled HTN- titrate meds; Urine output good. on liq diet. LN reactive only; no malignancy; Likely ileus- reduce narcotics; encouraged to ambulate in room; stool softners, rec'd rectal suppositories yesterday; monitor closely today; 9-4 passing flatus; augment turner regimen; cont ambulation; check KUB= Ileus TONIA ALONZO MD, PHD.
[2019-11-20] MEDS: D5.45%NS/KCL 20MEQ 1,000 ML IV SCH ×2 (08:29→18:17)
--- NOTE | 2019-11-20 09:17 | Diagnostic Imaging Report ---
Abdomen one view INDICATION: ^prostate cancer ^[id number] ^[id number] ^Y Comparison: None available. Discussion: Multiple dilated small bowel loops are noted throughout the abdomen concerning for obstruction or ileus. Colon is not well identified. Postsurgical changes of the pelvis are identified. IMPRESSION: Diffuse dilated small bowel loops are concerning for ileus versus obstruction. Consider cross-sectional imaging for further evaluation. Signed by: Christiano Torres MD on 11/20/2019 9:14 AM
--- NOTE | 2019-11-20 09:21 | NUR ---
Paged to notify of KUB results
[2019-11-20] MEDS: MAGNESIUM HYDROXIDE 30 ML UDC PO SCH (09:27)
[2019-11-20] MEDS: PANTOPRAZOLE SOD 40 MG TABEC PO SCH (09:27)
[2019-11-20] MEDS: DOCUSATE SODIUM LIQD 100 MG/10 ML UDC PO SCH ×2 (09:27→15:55)
[2019-11-20] MEDS: SENNOSIDES 8.6 MG TAB PO SCH ×2 (09:27→15:55)
--- NOTE | 2019-11-20 10:30 | NUR ---
Repaged to notify of KUB results
--- NOTE | 2019-11-20 10:51 | NUR ---
Dr. Hayden aware of KUB results. Per "Encourage patient to ambulate"
[2019-11-20] MEDS: BISACODYL 10 MG SUPP PR PRN ×2 (18:12→18:17)
[2019-11-20] MEDS: CLINDAMYCIN 300MG 50 ML IV SCH (18:37)
--- NOTE | 2019-11-20 19:10 | NUR ---
Report given to oncoming nurse of patient's status. No s/s of acute distress noted. Side rails upx2, call light within reach, bed alarm on.
[2019-11-21] VITALS (8 sets, daily range): BP systolic 115–162; BP diastolic 64–90
[2019-11-21] MEDS: D5.45%NS/KCL 20MEQ 1,000 ML IV SCH ×4 (02:41→20:47)
[2019-11-21] MEDS: CLINDAMYCIN 300MG 50 ML IV SCH ×3 (02:41→17:11)
[2019-11-21] MEDS: CEFAZOLIN SOD 1 GM/NS 50ML 50 ML IV SCH ×3 (06:01→22:14)
[2019-11-21] MEDS: MAGNESIUM HYDROXIDE 30 ML UDC PO SCH (08:41)
[2019-11-21] MEDS: PANTOPRAZOLE SOD 40 MG TABEC PO SCH (08:56)
[2019-11-21] MEDS: SENNOSIDES 8.6 MG TAB PO SCH ×2 (08:56→17:11)
[2019-11-21] MEDS: DOCUSATE SODIUM 100 MG CAP PO SCH ×2 (10:00→17:11)
--- NOTE | 2019-11-21 11:03 | NUR ---
IM- progress note O/N see below v/s; revd PE tired appearing anicteric ns1s2 mod bs soft; luz on abdomen; STEPH drain in place right pelvis; mederos with blood tinged urine scd; no edema skin dry n. affect labs/meds revd A/P: Prostate cancer - s/p Pelvic lymphadectomy with B/L PLND; STEPH drain in place; Obesity- screen for DM BMI 32.4 Nicotine dependence in remission- f/u outpt Pelvic pain- prn pain meds Prop: scd DIspo; monitor; f/u labs; 9-2 Hba1c/LDL 5.8/91; PreDM- use ADA diet; recheck in 3 months; 9-3 Uncontrolled HTN- titrate meds; Urine output good. on liq diet. LN reactive only; no malignancy; Likely ileus- reduce narcotics; encouraged to ambulate in room; stool softners, rec'd rectal suppositories yesterday; monitor closely today; 9-4 passing flatus; augment turner regimen; cont ambulation; check KUB= Ileus 9-5 cont care; continue bowel regimen. Had several BMs. use milk mag PRN only. TONIA ALONZO MD, PHD.
--- NOTE | 2019-11-21 11:11 | Diagnostic Imaging Report ---
EXAM: Abdomen Radiograph INDICATION: FOLLOW UP ILEUS AND COMPARE TO PRIOR COMPARISON: KUB dated 11/20/2019.. FINDINGS: TUBES and LINES: None. LOWER CHEST: No abnormalities in the lower chest. ABDOMEN: Again seen are multiple dilated small bowel loops are noted throughout the abdomen, slightly improved from prior exam. No pneumoperitoneum. No abnormal abdominal calcifications. BONES AND SOFT TISSUES: No acute osseous lesion. Surgical clips and luz are seen in the lower abdomen and pelvis IMPRESSION: Slightly improved multiple dilated small bowel could be due to postoperative ileus. Recommend follow-up KUB to assess interval change and exclude obstruction. Signed by: Robert Singh MD on 11/21/2019 11:07 AM
--- NOTE | 2019-11-21 14:45 | NUR ---
Nutrition Intervention Note RD Recommendation(s) for Physician: -Recommend advancing to GI soft/ADA diet when medically appropriate -Recommend Ensure clear BID for adequacy while on clear liquid diet -If diet is unable to be advanced, consider alternative means of nutrition Plan of Care: RD following, monitoring for tolerance and adequacy Nutrition reason for involvement: Length of stay and NPO/clear liquid diet > [address] Assessment (11/21/19) Pt is a 64 year old male admitted with prostate cancer. Pt has a pelvic lymphadenectomy, eden cysto, and bladder repair procedure performed on 11/15. Pt has been on an NPO/clear liquid diet for 5 days. MD note on 11/19 indicates pt had a KUB to check for ileus. Pt reports is tolerating clear liquids at this time and was eating at least 75% of his meals prior to admission. No weight loss reported and pt stated he usually weighs 210 lbs. Pt currently has a weight of 207 lbs in chart. Pt reports some N/V yesterday. No chewing/swallowing issues. Recommend advancing diet when medically appropriate. Will continue to monitor. Principal Problems/Diagnoses: prostate cancer PMH: Prostate cancer dx 09/2019, HTN, GERD, obesity, prostate GI: last recorded BM 11/20 Skin: no pressure ulcers Labs: (11/20) Na 149, K 4.0, BUN 9, Cr 0.87,Glu 204, Ca 9.0 Meds: colace, antibiotics, protonix, zofran, senokot, milk of magnesiua Ht: 67 in Wt: 207 lbs BMI: 32.4 kg/m2 IBW: 148 lbs Malnutrition Evaluation (11/21/19) The patient does not meet criteria for a specified degree of malnutrition at this time. Will re-evaluate at follow-up as appropriate. Energy intake: <50% of estimated energy requirements for 5 days Weight loss: No weight loss reported Fat loss: no loss per observation Muscle loss: no loss per observation Supporting Evidence: Fluid accumulation: unable to evaluate Functional Status: unable to evaluate Nutrition Prescription (Diet Order): clear liquids Estimated Nutritional Needs: 5737-0942 calories/day (22-25 kcal/kg IBW) 80-100 g protein/day (1.2-1.5 g pro/kg IBW) Diet Adequacy: Not meeting calorie needs, Not meeting protein needs Tolerance: Tolerating PO Diet Education Needs Assessment:. Diet education not indicated, patient on temporary/transition diet. Nutrition Care Level: moderate Nutrition Diagnosis: Inadequate energy intake related to decreased ability to consume sufficient energy as evidenced by insufficient energy intake from diet compared to needs Goal: Patient will meet 75-100% of estimated needs by follow up Progress: N/A Interventions: -fiber and carbohydrate -modified diet, Commercial beverage Monitoring/Evaluation: -Total energy intake, Total protein intake, Modified diet, Liquid supplement, Weight change Signed: Chanel Najera RD, LD
[2019-11-21] MEDS ORDERED: ONDANSETRON HCL 4 MG ORAL DISINTEGRATING TAB PO PRN (18:15)
--- NOTE | 2019-11-21 19:48 | NUR ---
BEDSIDE SHIFT REPORT RECEIVED FROM DAY RN. PT IS ALERT AND ORIENTEDX3. RESPIRATIONS ARE EVEN AND UNLABORED. 02 AT 2L PER N/C - PT USES ON AND OFF. CPAP ON AT BEDTIME. MIDLINE INCISION DRY AND INTACT. STEPH DRAIN CHARGED. PIV LEFT FA 20G - D51/2 + 20 KCL INFUSING AT 125 ML/HR. SITE HEALTHY. KENNEDY TO GRAVITY. KENNEDY DRAINING CLEAR YELLOW URINE. CALL LIGHT WITHIN REACH. BED LOCKED ND IN LOW POSITION.
[2019-11-22] VITALS (7 sets, daily range): BP systolic 108–131; BP diastolic 57–77
--- NOTE | 2019-11-22 00:38 | NUR ---
PT C/O OF ACID REFLUX. PT BURPING AND PASSING GAS. PT AMBULATE IN [place]. ZOFRAN GIVEN ORDERED FOR NAUSEA. WILL MONITOR FOR RELIEF.
[2019-11-22] MEDS: CLINDAMYCIN 300MG 50 ML IV SCH ×3 (02:01→16:59)
[2019-11-22 06:06] LABS: BASOPHILS # (AUTO) 0.1 (0.0-0.1); BASOPHILS % 0.8 % (0.0-1.0); EOSINOPHILS # (AUTO) 0.5 (0.0-0.4); EOSINOPHILS % 6.5 % (0.0-6.0); HEMATOCRIT 38.1 % (38.2-49.6); HEMOGLOBIN 12.3 g/dL (14.0-18.0); LYMPHOCYTES # (AUTO) 1.6 (1.0-3.2); LYMPHOCYTES % 20.3 % (18.0-39.1); MEAN CORPUSCULAR HEMOGLOBIN 29.4 pg (28-32); MEAN CORPUSCULAR HGB CONC 32.3 g/dL (31-35); MEAN CORPUSCULAR VOLUME 90.9 fL (81-99); MONOCYTES # (AUTO) 0.8 (0.2-0.8); MONOCYTES % 10.4 % (4.4-11.3); NEUTROPHILS # (AUTO) 4.8 (2.1-6.9); NEUTROPHILS % 61.6 % (38.7-80.0); PLATELET COUNT 277 x10e3/uL (140-360); RED BLOOD COUNT 4.19 x10e6/uL (4.3-5.7); RED CELL DISTRIBUTION WIDTH 12.3 % (11.7-14.4)
[2019-11-22 06:12] LABS: ANION GAP 13.4 mmol/L (8-16); BLOOD UREA NITROGEN 7 mg/dL (7-26); BUN/CREATININE RATIO 9 (6-25); CARBON DIOXIDE 25 mmol/L (22-29); CHLORIDE 104 mmol/L (98-107); CREATININE, SERUM 0.79 mg/dL (0.72-1.25); EST GLOMERULAR FILTRATION RATE > 60 ML/MIN (60-); GLUCOSE 117 mg/dL (74-118); POTASSIUM 4.4 mmol/L (3.5-5.1); SODIUM 138 mmol/L (136-145)
[2019-11-22] MEDS: CEFAZOLIN SOD 1 GM/NS 50ML 50 ML IV SCH ×3 (06:20→21:59)
[2019-11-22] MEDS: DOCUSATE SODIUM 100 MG CAP PO SCH ×2 (08:36→14:24)
[2019-11-22] MEDS: SENNOSIDES 8.6 MG TAB PO SCH ×2 (08:36→14:24)
--- NOTE | 2019-11-22 08:46 | NUR ---
STEPH drain removed per Dr Liu. IVF stopped. diet advanced to ADA and tray ordered.
[2019-11-22] MEDS: PANTOPRAZOLE SOD 40 MG TABEC PO SCH (08:47)
--- NOTE | 2019-11-22 09:44 | NUR ---
IM- progress note O/N see below v/s; revd PE tired appearing anicteric ns1s2 mod bs soft; luz on abdomen; STEPH drain in place right pelvis; mederos with blood tinged urine scd; no edema skin dry n. affect labs/meds revd A/P: Prostate cancer - s/p Pelvic lymphadectomy with B/L PLND; STEPH drain in place; Obesity- screen for DM BMI 32.4 Nicotine dependence in remission- f/u outpt Pelvic pain- prn pain meds Prop: scd DIspo; monitor; f/u labs; 9-2 Hba1c/LDL 5.8/91; PreDM- use ADA diet; recheck in 3 months; 9-3 Uncontrolled HTN- titrate meds; Urine output good. on liq diet. LN reactive only; no malignancy; Likely ileus- reduce narcotics; encouraged to ambulate in room; stool softners, rec'd rectal suppositories yesterday; monitor closely today; 9-4 passing flatus; augment turner regimen; cont ambulation; check KUB= Ileus 9-5 cont care; continue bowel regimen. Had several BMs. use milk mag PRN only. 9-6 improving; drain out; remains with mederos; TONIA ALONZO MD, PHD.
[2019-11-22] MEDS ORDERED: MAGNESIUM HYDROXIDE 30 ML UDC PO PRN (11:06)
--- NOTE | 2019-11-22 12:18 | Diagnostic Imaging Report ---
EXAM: Abdomen Radiograph INDICATION: follow up ileus COMPARISON: KUB dated 11/20/2019 11/21/2019. FINDINGS: TUBES and LINES: None. LOWER CHEST: No abnormalities in the lower chest. ABDOMEN: Multiple dilated small bowel loops have improved from prior exam. No pneumoperitoneum. No abnormal abdominal calcifications. BONES AND SOFT TISSUES: No acute osseous lesion. Surgical clips and luz are seen in the lower abdomen and pelvis IMPRESSION: Improved multiple dilated small bowel suggestive of improving postoperative ileus. Signed by: Robert Singh MD on 11/22/2019 12:14 PM
--- NOTE | 2019-11-22 19:45 | NUR ---
BEDSIDE SHIFT REPORT RECEIVED FROM DAY RN. PT IS ALERT AND ORIENTED X3. RESPIRATIONS ARE REGULAR AND EVEN. 20G SL LEFT FA. KENNEDY TO GRAVITY. URINE IS CLEAR YELLOW. ABDOMINAL INCISION KUSUM DRY AND INTACT. STEPH DRAIN D/C YESTERDAY. PT TOLERATING ADA DIET WELL. PT REPORTS DOES NOT CHECK HIS BLOOD SUGAR AT HOME. PT DENIES PAIN PT WANTING TO GO HOME. PT HAD MODERATE AMOUNT OF BROWN SOFT FORMED STOOL. CALL LIGHT WITHIN REACH. BED IN LOW POSITION.
[2019-11-23] VITALS: BP 118/66
[2019-11-23] MEDS: CLINDAMYCIN 300MG 50 ML IV SCH ×2 (01:54→11:00)
[2019-11-23] MEDS ORDERED: SODIUM CHLORIDE 0.9% 250ML 250 ML ONE (02:07)
[2019-11-23 04:00] VITALS: BP 113/58
[2019-11-23] MEDS: CEFAZOLIN SOD 1 GM/NS 50ML 50 ML IV SCH (05:50)
[2019-11-23] MEDS: DOCUSATE SODIUM 100 MG CAP PO SCH ×2 (08:27→09:00)
[2019-11-23] MEDS: SENNOSIDES 8.6 MG TAB PO SCH ×2 (08:27→09:00)
[2019-11-23] MEDS: PANTOPRAZOLE SOD 40 MG TABEC PO SCH (08:27)
[2019-11-23 08:30] VITALS: BP 138/74
[2019-11-23 08:52] VITALS: BP 138/74
[2019-11-23] MEDS ORDERED: PROTONIX40 MG/ML PO (10:39)
[2019-11-23] MEDS ORDERED: COLACE100 MG PO (10:39)
[2019-11-23] MEDS ORDERED: SENOKOT8.6 MG PO (10:39)
--- NOTE | 2019-11-23 10:41 | NUR ---
D/.C summary Principal Dx: Prostate cancer - s/p Pelvic lymphadectomy with B/L PLND; STEPH drain in place; Ileus PredM Secondary Dx: Obesity- screen for DM BMI 32.4 Nicotine dependence in remission- f/u outpt Pelvic pain- prn pain meds Prop: scd DIspo; monitor; f/u labs; 9-2 Hba1c/LDL 5.8/91; PreDM- use ADA diet; recheck in 3 months; 9-3 Uncontrolled HTN- titrate meds; Urine output good. on liq diet. LN reactive only; no malignancy; Likely ileus- reduce narcotics; encouraged to ambulate in room; stool softners, rec'd rectal suppositories yesterday; monitor closely today; 9-4 passing flatus; augment turner regimen; cont ambulation; check KUB= Ileus 9-5 cont care; continue bowel regimen. Had several BMs. use milk mag PRN only. 9-6 improving; drain out; remains with mederos; d/c home stable d/c>35mins F/u PCP 2 days and 1 -2 weeks TONIA ALONZO MD, PHD.
[2019-11-23] MEDS ORDERED: TYLENOL # 31 EA (11:15)
[2019-11-23] MEDS ORDERED: BACTRIM DS TAB1 EACH PO (11:16)
[2019-11-23 12:31] VITALS: BP 138/74
--- NOTE | 2019-11-23 13:05 | NUR ---
Left Upper arm Picc line discontinued. No signs of infiltration noted. 2x2 gauze and coban placed. Taken via wheelchair to personal car. AAOx4 to time, person, place, situation. Respirations even and unlabored.Contreras catheter on leg bag. Discharge instructions, rx, and all personal belongings taken with patient. Addendum: 11/23/19 at 1426 by AMINTA SALAS RN ERROR
--- NOTE | 2019-11-23 13:05 | NUR ---
Left FA IV discontinued. No signs of infiltration noted. 2x2 gauze and coban placed. Taken via wheelchair to personal car. AAOx4 to time, person, place, situation. Respirations even and unlabored.Contreras catheter on leg bag. Discharge instructions, rx, and all personal belongings taken with patient.
== END 2019-11-23 13:06 | disposition home or self-care (01) | DRG 715 ==
LOC: OR 10:58 → PACU V 15:26 → MED/SURG 17:01
PROVIDERS: ADMIT Internal Medicine; ATTEND Internal Medicine
PROC: 0TJB8ZZ Inspection of Bladder, Via Natural or Artificial Opening Endoscopic (ICD-10-PCS; 2019-11-16)
PROC: 0TQB0ZZ Repair Bladder, Open Approach (ICD-10-PCS; 2019-11-16)
PROC: 07BC0ZX Excision of Pelvis Lymphatic, Open Approach, Diagnostic (ICD-10-PCS; principal; 2019-11-16 13:00)
DX: C61 Malignant neoplasm of prostate (principal); N13.8 Other obstructive and reflux uropathy; Z87.442 Personal history of urinary calculi; E66.9 Obesity, unspecified; Z11.59 Encounter for screening for other viral diseases; Z68.32 Body mass index [BMI] 32.0-32.9, adult; N40.1 Benign prostatic hyperplasia with lower urinary tract symptoms
CPT/HCPCS: 36415; 71046; 74018; 80048; 80053; 80061; 83036; 83735; 85025; 86850; 86900; 88305; 93005; 97139; 99251; J0690; J1100; J2001; J2250; J2270; J2405; J2710; J3010; J7050; Q0162; U0002

== ENCOUNTER 2019-12-02 19:53 | Emergency (ER) | payer MEDICARE ==
[~2019-12-02] VITALS: Ht 170.2 cm; Wt 93.9 kg
[~2019-12-02 19:53] MED LIST changes: +BACTRIM DS TAB1 EACH PO; +CARDURA4 MG PO; +CENTRUM SILVER1 EAC6 PO; +COLACE100 MG PO; +GARLIC1 EAC1 PO; +MEGARED OMEGA-1 EAC3 PO; +PROTONIX40 MG/ML PO; +SENOKOT8.6 MG PO; +TYLENOL # 31 EA; +citracal PO; +vitamin d3 PO
--- NOTE | 2019-12-02 20:44 | Emergency Department Note ---
History of Present Illnes History of Present Illness Chief Complaint: Genitourinary History of Present Illness This is a 64 year old male PRESENTS TO THE ER C/O LEAKING KENNEDY CATHETER ONSET YESTERDAY; PT REPORTS PAIN TO MEATUS OF PENIS; PT RPEORTS SMALL AMOUNT OG URINE LEAKING YESTERDAY AND LEAKING INCREASED TODAY; PT HAD SX BY DR. Bella WILSON AND DX ON 10/30/19; NAD NOTED AT THIS TIME; . Historian: Patient Arrival Mode: Car Onset (how long ago): day(s) (1) Location: PENIS Quality: LEAKING AROUND KENNEDY, URINE NOT PASSING INTO BAG Radiation: Reports non-radiation Severity: mild Onset quality: gradual Duration (how long): day(s) (1) Timing of current episode: constant Progression: worsening Context: Reports recent surgery (BLADDER SURGERY) Relieving factors: none Exacerbating factors: none Associated symptoms: Reports denies other symptoms Past Medical/Family History Physician Review I have reviewed the patient's past medical and family history. Any updates have been documented here. Past Medical History Recent Fever: No Clinical Suspicion of Infectio: No New/Unexplained Change in Ment: No Past Medical History: Hypertension, Kidney Stones, GERD Other Medical History: SLEEP APNEA PROSTATE CA DIVERTICULOSIS Past Surgical History: Hernia Repair Other Surgery: LYMPH NODES REMOVAL OF PROSTATE Social History Smoking Cessation: Never Smoker Alcohol Use: None Any Illegal Drug Use: No Family History Family history of heart diseas: No Review of Systems Review of Systems Constitutional: Reports no symptoms EENTM: Reports no symptoms Cardiovascular: Reports no symptoms Respiratory: Reports no symptoms Gastrointestinal: Reports no symptoms Genitourinary: Reports as per HPI Musculoskeletal: Reports no symptoms Integumentary: Reports no symptoms Neurological: Reports no symptoms Psychological: Reports no symptoms Endocrine: Reports no symptoms Hematological/Lymphatic: Reports no symptoms Physical Exam Related Data Allergies: Coded Allergies: No Known Allergies (Unverified , 08/04/19) Triage Vital Signs Vital Signs Date Time Temp Pulse Resp B/P (MAP) Pulse Ox O2 Delivery O2 Flow Rate FiO2 12/02/19 20:32 98.1 80 20 141/83 98 Room Air Vital signs reviewed: Yes Physical Exam CONSTITUTIONAL Constitutional: Present well-developed, Present well-nourished HENT HENT: Present normocephalic, Present atraumatic, Present oropharynx clear/moist, Present nose normal HENT L/R: Present left ext ear normal, Present right ext ear normal EYES Eyes: Reports PERRL, Reports conjunctivae normal NECK Neck: Present ROM normal PULMONARY Pulmonary: Present effort normal, Present breath sounds normal CARDIOVASCULAR Cardiovascular: Present regular rhythm, Present heart sounds normal, Present capillary refill normal, Present normal rate GASTROINTESTINAL Abdominal: Present soft, Present nontender, Present bowel sounds normal GENITOURINARY Genitourinary: Present penis normal, Present other (INDWELLING KENNEDY PRESENT, NO URINE IN COLLECTION BAG) SKIN Skin: Present warm, Present dry MUSCULOSKELETAL Musculoskeletal: Present ROM normal NEUROLOGICAL Neurological: Present alert, Present oriented x 3, Present no gross motor or sensory deficits PSYCHOLOGICAL Psychological: Present mood/affect normal, Present judgement normal Results Imaging Impressions Procedure: [id number] CT/CT PELVIS W Exam Date: Exam Time: REPORT STATUS: Signed EXAM: CT Pelvis WITH contrast INDICATION: Leaking kennedy ^50CC CONTRAST THROUGH KENNEDY, CT CSYTOGRAM ^Y COMPARISON: None. TECHNIQUE: Pelvis were scanned utilizing a multidetector helical scanner from the iliac crest to the pubic symphysis after administration without IV contrast. Coronal and sagittal reformations were obtained. Routine protocol was performed. 15 mL of contrast was instilled through the Kennedy catheter into the urinary bladder. Imaging was repeated after voiding IV CONTRAST: 150 mL of Omnipaque 300 ORAL CONTRAST: Water COMPLICATIONS: None RADIATION DOSE: Total DLP: 739.25 mGy*cm Estimated effective dose: (DLP x 0.015 x size factor) mSv CTDIvol has been reviewed. It is below the limits set by the Radiation Protocol Committee (RPC). Dose modulation, iterative reconstruction, and/or weight based adjustment of the mA/kV was utilized to reduce the radiation dose to as low as reasonably achievable. FINDINGS: LINES and TUBES: Kennedy catheter in urinary bladder.. GI TRACT: Imaged bowel is unremarkable without evidence of obstruction. PELVIC ORGANS/BLADDER: Air within the urinary bladder likely similar to instrumentation. 50 ml contrast was instilled into the urinary bladder through the Kennedy catheter. No extraluminal contrast identified. Kennedy catheter balloon appears inflated and well positioned. Small volume residual contrast in the urinary bladder on post void imaging. LYMPH NODES: No lymphadenopathy. VESSELS: Unremarkable. PERITONEUM / RETROPERITONEUM: Small 4.3 x 2.0 cm low density collection with an internal focus of gas along the left external iliac artery, incompletely assessed on noncontrast exam. Multiple pelvic surgical clips. Trace fluid within the lower pelvis likely postsurgical. BONES: Unremarkable. SOFT TISSUES: Skin luz overlie the midline lower abdomen and pelvis. Small right fat-containing inguinal hernia. IMPRESSION: 1. No extravasation of contrast from the bladder lumen. 2. 4.3 x 2.0 cm low-density collection with a internal focus of gas adjacent to the left external iliac artery, incompletely assessed on noncontrast exam. Findings may relate to resolving postoperative changes, rather than abscess. Signed by: Cheri Norman MD on 12/02/2019 10:27 PM Dictated By: CHERI NORMAN MD 26 Transcribed By: GERALDINE on 12/02/192226 COPY TO: KRISTINE JAMES MD~ Assessment & Plan Medical Decision Making MDM PT WITH LEAKING AROUND KENNEDY CATH I SPOKE WITH DR WILSON. HE REQUESTS ATTEMPT GENTLE IRRIGATION TO GET KENNEDY TO START DRAINING AGAIN CT CYSTOGRAM OBTAINED AND RESULTS DISCUSSED WITH DR WILSON, DR WILSON STATES REMOVE KENNEDY CATHETER AND HAVE PT FOLLOW UP IN OFFICE ON SATURDAY Assessment & Plan Final Impression: (1) Malfunction of Kennedy catheter Depart Disposition: HOME, SELF-CARE Last Vital Signs Date Time Temp Pulse Resp B/P (MAP) Pulse Ox O2 Delivery O2 Flow Rate FiO2 12/02/19 20:32 98.1 80 20 141/83 98 Room Air Home Meds Active Scripts Pantoprazole Sod (PROTONIX) 40 Mg/Ml Susp, 40 MG PO DAILY for 30 Days Prov:TONIA ALONZO MD 11/23/19 Sennosides (SENOKOT) 8.6 Mg Tablet, 8.6 MG PO BID for 30 Days Prov:TONIA ALONZO MD 11/23/19 Docusate Sodium (COLACE) 100 Mg Cap, 100 MG PO BID for 30 Days, CAP Prov:TONIA ALONZO MD 11/23/19 Reported Medications Sulfamethoxazole/Trimethoprim (BACTRIM DS TABLET) 1 Each Tablet, 1 TAB PO BID, #28 TAB 11/23/19 Acetaminophen/Codeine* (TYLENOL # 3*) 1 Ea Tab, 1 TAB Q4HR PRN for MODERATE PAIN (4-6), #30 11/23/19 Doxazosin Mesylate (CARDURA) 4 Mg Tablet, 1 TAB PO HS 11/16/19 Garlic (GARLIC) 1 Each Tablet, 1 TAB PO DAILY 11/16/19 Krill/Om-3/Dha/Epa/Phospho/Ast (Megared [place]-3 Krill 350 mg) 1 Each Capsule, 1 CAP PO DAILY 11/16/19 Cetirizine Hcl (ZYRTEC) 10 Mg Capsule, 1 CAP PO DAILY THERAPEUTICALLY SUBSTITUTED WITH LORATIDINE 10MG 11/16/19 [citracal] No Conflict Check, PO DAILY 11/16/19 Multivit-Min/FA/Lycopen/Lutein (Centrum Silver Men Tablet) 1 Each Tablet, 1 TAB PO DAILY 11/16/19 [vitamin d3] No Conflict Check, PO DAILY 11/16/19 KRISTNIE JAMES MD Dec 02, 2019 20:44
--- OUTSIDE RECORDS SUMMARY | 2019-12-02 21:08 | XMS REPORT | Continuity of Care Document ---
Author Author [facility] t Organization [facility] Address [address] [place] [address] Phone Unavailable Care Team Providers Care Otr Driver Name Role Phone MD JESI ZIMMERMAN PCP TONIA ALONZO Attphys Unavailable HAMPEL, THOMAS Attphys Unavailable TONIA ALONZO Admphys Unavailable Problems Condition Name Condition Details Condition Category Status Onset Date Resolution Date Last Treatment Date Treating Clinician Comments Source Problem Condition Active [facility] Allergies, Adverse Reactions, Alerts This patient has no known allergies or adverse reactions. Social History Social Habit Start Date Stop Date Quantity Comments Source Sex Assigned At 1955 00:00:00 1955 00:00:00 Male [facility] Medications Ordered Medication Name Filled Medication Name Start Date Stop Da te Current Medication? Ordering Clinician Indication Dosage Frequency Signature (SIG) Comments Components Source Docusate Sodium (Colace) 100 Mg CAP Docusate Sodium (Colace) 100 Mg CAP 2019-11-23 10:39:00 Yes 100 Twice A Day [facility] Pantoprazole Sod (Protonix) 40 Mg/Ml SUSP Pantoprazole Sod (Protonix) 40 Mg/Ml SUSP 2019-11-23 10:39:00 Yes 40 Daily [facility] Sennosides (Senokot) 8.6 Mg TABLET Sennosides (Senokot) 8.6 Mg TABLET 2019-11-23 10:39:00 Yes 8.6 Twice A Day [facility] Acetaminophen/Codeine Phosphate (Tylenol # 3*) 1 Ea TA B Acetaminophen/Codeine Phosphate (Tylenol # 3*) 1 Ea TAB Yes 1 Every 4 Hours as needed for Moderate Pain (4-6) [facility] Cetirizine Hcl (Zyrtec) 10 Mg CAPSULE Cetirizine Hcl (Zyrtec) 10 Mg CAPSULE Yes 1 Daily [facility] Citracal Citracal Yes Daily [facility] Doxazosin Mesylate (Cardura) 4 Mg TABLET Doxazosin Mes ylate (Cardura) 4 Mg TABLET Yes 1 Bedtime [facility] Garlic Garlic Yes 1 Daily [facility] Krill/Om-3/Dha/Epa/Phospho/Ast (Megared [place]-3 Krill 350 Mg) 1 Each CAPSULE Krill/Om-3/Dha/Epa/Phospho/Ast (Megared [place]-3 Krill 350 Mg) 1 Each CAPSULE Yes 1 Daily [facility] Multivit-Min/Fa/Lycopen/Lutein (Centrum Silver Men Tab let) 1 Each TABLET Multivit-Min/Fa/Lycopen/Lutein (Centrum Silver Men Tablet) 1 Each TABLET Yes 1 Daily [facility] Sulfamethoxazole/Trimethoprim (Bactrim Ds Tablet) 1 Ea ch TABLET Sulfamethoxazole/Trimethoprim (Bactrim Ds Tablet) 1 Each TABLET Yes 1 Twice A Day [facility] Vitamin D3 Vitamin D3 Yes Daily [facility] Cetirizine Hcl (Zyrtec) 10 Mg CAPSULE Cetirizine Hcl (Zyrtec) 10 Mg CAPSULE 2019-11-13 00:00:00 No 10 As Needed [facility] Doxazosin Mesylate Doxazosin Mesylate 2019-11-13 00:00:00 No [address] [facility] [place] [place] Vital Signs Vital Name Observation Time Observation Value Comments Source Body Temperature 2019-11-23 12:31:00 98.2 [degF] [facility] BMI (Body Mass Index) 2019-11-17 01:42:00 32.4 kg/m2 [facility] Weight 2019-11-16 17:28:00 207 [lb_av] [facility] Procedures Procedure Date / Time Performed Performing Clinician [facility] e X-ray of chest, two views 2019-11-11 00:00:00 [facility] CYSTOSCOPY AND TREATMENT 2019-08-12 00:00:00 [facility] BIOPSY OF PROSTATE 2019-08-12 00:00:00 [facility] Ultrasound of prostate with transrectal approach 2019-08-12 00:0 0:00 [facility] Intraoperative ultrasound 2019-08-12 00:00:00 [facility] X-ray of chest, two views 2019-08-07 00:00:00 [facility] Plan of Care Planned Activity Planned Date Details Comments Source Instructions Diabetes and Diet [facility] Instructions Contreras Catheter Care [facility] Instructions Infection Control [facility] Instructions Post Operative Pain [facility] Encounters Start Date/Time End Date/Time Encounter Type Admission Type [facility] Care Department Encounter ID Source 2019-11-16 15:26:00 2019-11-23 13:06:00 Discharged Inpatient 3 TONIA ALONZO [facility] [id number] [facility] 2019-08-12 07:48:00 2019-08-12 07:48:00 Registered Surgical Day Car e 3 THOMAS WILSON [facility] [id number] [facility] Results Test Description Test Time Test Comments Results Result Comments Source ABDOMEN-1VIEW (KUB) 2019-11-22 12:13:00 [facility] [address] [place] [address] Patient Name: MIRA MCCORMICK MR #: [id number] : 1955 Age/Sex: 64/M Req #: [id number] Adm Physician: TONIA ALONZO MD Ordered by: THOMAS WILSON MD Report #: [id number] Location: MED/SURG Room/Bed: [facility] Procedure: [id number] DX/ABDOMEN-1VIEW (KUB) Exam Date: 11/22/19 Exam Time: 1107 REPORT STATUS: Signed EXAM: Abdomen Radiograph INDICATION: follow up ileus COMPARISON: KUB dated 11/20/2019 11/21/2019. FINDINGS: TUBES and LINES: None. LOWER CHEST: No abnormalities in the lower chest. ABDOMEN: Multiple dilated small bowel loops have improved from prior exam. No pneumoperitoneum. No abnormal abdominal calcifications. BONES AND SOFT TISSUES: No acute osseous lesion. Surgical clips and luz are seen in the lower abdomen and pelvis IMPRESSION: Improved multiple dilated small bowel suggestive of improving postoperative ileus. Signed by: Robert Gayle MD on 11/22/2019 12:14 PM Dictated By: ROBERT GAYLE MD 1214 Transcribed By: GERALDINE on 11/22/19 1214 COPY TO: THOMAS WILSON MD Blood leukocytes automated count (number/volume) 2019-11-22 05:30:00 Test Item White Blood Count (test code = 6690-2) 7.82 4.8-10.8 [facility] erythrocytes automated count (number/volume)2019-11-22 05:30:00* Test Item Value Reference Range Interpretation Comments Red Blood Count (test code = 789-8) 4.19 4.3-5.7 [facility] measurement (moles/volume)2019-11-22 05:30:00* Test Item Value Reference Range Interpretation Comments Hemoglobin (test code = 10604-2) 12.3 14.0-18.0 [facility] blood hematocrit (volume fraction)2019-11-22 05:30:00* Test Item Value Reference Range Interpretation Comments Hematocrit (test code = 4544-3) 38.1 38.2-49.6 [facility] erythrocyte mean corpuscular dpngyu6334-01-73 05:30:00* Test Item Value Reference Range Interpretation Comments Mean Corpuscular Volume (test code = 787-2) 90.9 81-99 [facility] eryth[facility] mean corpuscular hemoglobin (mass per erythrocyte)2019-11-22 05:30:00* Test Item Value Reference Range Interpretation Comments Mean Corpuscular Hemoglobin (test code = 785-6) 29.4 28-32 [facility] erythrocyte mean corpuscular hemoglobin concentration measurement (mass/volume)2019-11-22 05:30:00* Test Item Value Reference Range Interpretation Comments Mean Corpuscular Hemoglobin Concent (test code = 786-4) 32.3 31-35 [facility] HospitalRDW EkmKh-Vlr0231-56-06 05:30:00* Test Item Value Reference Range Interpretation Comments Red Cell Distribution Width (test code = 63436-5) 12.3 11.7 -14.4 [facility] blood platelet count (count/volume)2019-11-22 05:30:00* Test Item Value Reference Range Interpretation Comments Platelet Count (test code = 777-3) 277 140-360 [facility] Hospital[facility] blood segmented neutrophil count as percentage of total zprddqeveh2232-66-32 05:30:00* Test Item Value Reference Range Interpretation Comments Neutrophils (%) (Auto) (test code = 09446-1) 61.6 38.7-80.0 [facility] blood lymphocyte count as percentage ot total ckxnoflvsx9007-22-06 05:30:00* Test Item Value Reference Range Interpretation Comments Lymphocytes (%) (Auto) (test code = 736-9) 20.3 18.0-39.1 [facility] Hospital[facility] blood monocyte count as percentage of total imisuhpwcs5119-93-72 05:30:00* Test Item Value Reference Range Interpretation Comments Monocytes (%) (Auto) (test code = 5905-5) 10.4 4.4-11.3 [facility] Hospital[facility] blood eosinophil count as percentage of total yzdpzewwag0396-45-98 05:30:00* Test Item Value Reference Range Interpretation Comments Eosinophils (%) (Auto) (test code = 713-8) 6.5 0.0-6.0 [facility] HospitalAutom[facility] blood basophil count as percentage of total gnavdowudh8986-65-82 05:30:00* Test Item Value Reference Range Interpretation Comments Basophils (%) (Auto) (test code = 706-2) 0.8 0.0-1.0 [facility] HospitalFluoroscopic procedure less than one hour nsksrytj8294-54-28 05:30:00* Test Item Value Reference Range Interpretation Comments IM GRANULOCYTES % (test code = IM GRANULOCYTES %) 0.4 0.0- 1.0 [facility] HospitalAutom[facility] blood neutrophil count 2019-11-22 05:30:00* Test Item Value Reference Range Interpretation Comments Neutrophils # (Auto) (test code = 751-8) 4.8 2.1-6.9 [facility] HospitalBlood lymphocytes count (number/volume) 2019-11-22 05:30:00* Test Item Value Reference Range Interpretation Comments Lymphocytes # (Auto) (test code = 57501-3) 1.6 1.0-3.2 [facility] HospitalBlood monocytes automated count (number/volume)2019-11-22 05:30:00* Test Item Value Reference Range Interpretation Comments Monocytes # (Auto) (test code = 742-7) 0.8 0.2-0.8 [facility] HospitalAutom[facility] blood eosinophil count 2019-11-22 05:30:00* Test Item Value Reference Range Interpretation Comments Eosinophils # (Auto) (test code = 711-2) 0.5 0.0-0.4 [facility] HospitalAutom[facility] blood basophil count (count/volume)2019-11-22 05:30:00* Test Item Value Reference Range Interpretation Comments Basophils # (Auto) (test code = 704-7) 0.1 0.0-0.1 [facility] HospitalFluoroscopic procedure less than one hour xgfvpoti3485-06-23 05:30:00* Test Item Value Reference Range Interpretation Comments Absolute Immature Granulocyte (auto (sirisha t code = Absolute Immature Granulocyte (auto) 0.03 0-0.1 [facility] sodium measurement (moles/volume)2019-11-22 05:30:00* Test Item Value Reference Range Interpretation Comments Sodium Level (test code = 2951-2) 138 136-145 [facility] plasma potassium measurement (moles/volume)2019-11-22 05:30:00* Test Item Value Reference Range Interpretation Comments Potassium Level (test code = 2823-3) 4.4 3.5-5.1 [facility] plasma chloride measurement (moles/volume)2019-11-22 05:30:00* Test Item Value Reference Range Interpretation Comments Chloride Level (test code = 2075-0) 104 98-107 [facility] or plasma carbon dioxide, total measurement (moles/volume)2019-11-22 05:30:00* Test Item Value Reference Range Interpretation Comments Carbon Dioxide Level (test code = 2028-9) 25 22-29 [facility] Hospitaler[facility] or plasma anion qfn1520-56-64 05:30:00* Test Item Value Reference Range Interpretation Comments Anion Gap (test code = 90770-4) 13.4 8-16 [facility] or plasma urea nitrogen measurement (mass/volume)2019-11-22 05:30:00* Test Item Value Reference Range Interpretation Comments Blood Urea Nitrogen (test code = 3094-0) 7 7-26 [facility] or plasma creatinine measurement (mass/volume)2019-11-22 05:30:00* Test Item Value Reference Range Interpretation Comments Creatinine (test code = 2160-0) 0.79 0.72-1.25 [facility] Hospital[facility] or plasma urea nitrogen/creatinine mass bhjoa1481-30-29 05:30:00* Test Item Value Reference Range Interpretation Comments BUN/Creatinine Ratio (test code = 3097-3) 9 6-25 [facility] HospitalEstimated glomerular filtration rate (GFR) auplysufwdeex0623-66-50 05:30:00* Test Item Value Reference Range Interpretation Comments Estimat Glomerular Filtration Rate (test code = 555575171) > 60 >60 Ranges were taken from the National Kidney Disease Education Program and the [employer] ional Kid[employer] Foundation literature.Reference ranges:60 or greater: Tzbufz69-13 ( for 3 consecutive months): Chronic kidney disease 15 or less: Kidney failureCHI [facility] Hospital MansfieldGlucose idrflmlfzkp1598-00-56 05:30:00* Test Item Value Reference Range Interpretation Comments Glucose Level (test code = VTF4016) 117 74-118 [facility] Hospitaler[facility] or plasma calcium measurement (mass/volume)2019-11-22 05:30:00* Test Item Value Reference Range Interpretation Comments Calcium Level (test code = 11230-9) 8.0 8.4-10.2 [facility] HospitalAB[facility] (KUB)2019-11-21 11:04:00 [facility] [address] [place] [address] Patient Name: MIRA MCCORMICK MR #: [id number] : 1955 Age/Sex: 64/M Req #: [id number] Adm Physician: TONIA ALONZO MD Ordered by: THOMAS WILSON MD Report #: [id number] Location: MED/SURG Room/Bed: [facility] Procedure: [id number] DX/ABDOMEN-1VIEW (BEVERLY B) Exam Date: 11/21/19 Exam Time: 929 REPORT STATUS: Signed EXAM: Abdomen Radiograp h INDICATION: FOLLOW UP ILEUS AND COMPARE TO PRIOR COMPARISON: KU B dated 11/20/2019.. FINDINGS: TUBES and LINES: None. LOWE R CHEST: No abnormalities in the lower chest. ABDOMEN: Again seen are multi ple dilated small bowel loops are noted throughout the abdomen, slightly impro debora from prior exam. No pneumoperitoneum. No abnormal abdominal calcifications . BONES AND SOFT TISSUES: No acute osseous lesion. Surgical clips and stap les are seen in the lower abdomen and pelvis IMPRESSION: Slightly impro debora multiple dilated small bowel could be due to postoperative ileus. Recommen d follow-up KUB to assess interval change and exclude obstruction. Signed by: Robert Gayle MD on 11/21/2019 11:07 AM Dictated By: ROBERT RODRIGUEZ MD 06 Trans cribed By: GERALDINE on 11/21/191106 COPY TO: THOMAS WILSON MD ABDOMEN-1VIEW (KUB)2019-11-20 09:13:00 [place] [address] Patient Name: MIRA MCCORMICK MR #: [id number] : 1955 Age/Sex: 64/M Req #: [id number] Adm Physician: TONIA ALONZO MD Ordered by: TONIA ALONZO MD Report #: [id number] Location: MED/SURG Room/Bed: [facility] Procedure: [id number] DX/ABDOMEN-1VIEW (K UB) Exam Date: 11/20/19 Exam Time: 829 REPORT STATUS: Signed Abdomen one view INDICATION: prostate cancer [id number] Y Comparison: None a vailable. Discussion: Multiple dilated small bowel loops are noted thro ughout the abdomen concerning for obstruction or ileus. Colon is not well iden tified. Postsurgical changes of the pelvis are identified. IMPRESSION: Diffuse dilated small bowel loops are concerning for ileus versus obstruction . Consider cross-sectional imaging for further evaluation. Signed by: Odell Torres MD on 11/20/2019 9:14 AM Dictated By: DEISY florez Signed By: DEISY TORRES MD on 11/20/19913 Transcribed By: GERALDINE on 0 11/20/19913 COPY TO: TONIA ALONZO MD Fluoroscopic procedure less than one hour ycrrhlqd1080-20-87 05:25:00* Test Item Value Reference Range Interpretation Comments Hemoglobin A1c Percent (test code = Hemoglobin A1c Percent) 5.8 4.0-7.0 [facility]er[facility] or plasma triglyceride measurement (mass/volume)2019-11-17 05:25:00* Test Item Value Reference Range Interpretation Comments Triglycerides Level (test code = 2571-8) 86 0-149 [facility] Hospitaler[facility] or plasma cholesterol measurement (mass/volume)2019-11-17 05:25:00* Test Item Value Reference Range Interpretation Comments Cholesterol Level (test code = 2093-3) 157 0-199 Less than 200 mg/dL Low Lblp266 - 239 mg/dL Borderline Dlsq711 m g/dl and greater High Risk [facility] Hospitalerum or plasma cholesterol in LDL measurement (mass/volume) 2019-11-17 05:25:00* Test Item Value Reference Range Interpretation Comments LDL Cholesterol (test code = 2089-1) 91 60-130 [facility] Hospitaler[facility] or plasma cholesterol in HDL measurement (mass/volume)2019-11-17 05:25:00* Test Item Value Reference Range Interpretation Comments HDL Cholesterol (test code = 2085-9) 49 40-60 [facility] Hospitaler[facility] or plasma total cholesterol/cholesterol in HDL mass iakyi7003-36-33 05:25:00* Test Item Value Reference Range Interpretation Comments Cholesterol/HDL Ratio (test code = 9830-1) 3.2 3.9-4.7 [facility] or plasma magnesium measurement (mass/volume)2019-11-16 16:05:00* Test Item Value Reference Range Interpretation Comments Magnesium Level (test code = 52042-3) 1.8 1.3-2.1 [facility] HospitalFluoroscopic procedure less than one hour kpxojucl6530-98-46 13:48:00* Test Item Value Reference Range Interpretation Comments Coronavirus (PCR) (test code = Coronavirus (PCR)) NOT DETECTED NOTD ETECTED Hologic Aptima SARS-CoV-2 assay is a nucleic amplification test intended for the qualitative detection of RNA from SARS-CoV-2 from nasopharyngeal (PHYS ASSISTANT) specimens . It is used under Emergency Use Authorization (EUA) by FDA.A positive result is indicative of the presence of SARS-CoV-2 RNA. Clinical correlation with patient history and other diagnostic information is necessary to determine patient infe ction status.A negative (Not Detected) result does not preclude SARS-CoV-2 infec tion. Clinical Correlation with patient history and other diagnostic information should be used in patient management decisions.Invalid: Unable to generate a va lid result on this specimen. Please submit a new specimen for reprat testing oc clinically indicated.Tesing performed by:[facility] [address] [place] [address] [id number], Jose Curry MD, PhD [facility] 2 SWJQP4654-16-55 13:46:00 [place] [address] Patient Name: MIRA MCCORMICK MR #: [id number] : 1955 Age/Sex: 64/M Req #: [id number] Adm Physician: Ordered by: THOMAS WILSON MD Report #: [id number] Location: OR Room/Bed: Procedure: DX/CHEST 2 VIEWS Ex am Date: 11/11/19 Exam Time: 1337 REPORT STATUS: Signed EXAMINATION: CHEST 2 VIEWS INDICATION: Pre-operative COMPARISON: Chest radiograph 08/07/2019 FINDINGS: LINES/TUBES:None LUNGS:The lungs are well-inflated. No focal consolidation or pulmonary edema. PLEURA:No pleural effusion or pn eumothorax. MEDIASTINUM:The cardiomediastinal silhouette appears normal in size and shape. Atherosclerotic calcifications of the thoracic aorta. ROSANA LINETTE/SOFT TISSUES:No acute osseous injury. ABDOMEN:No free air under the aron phragm. IMPRESSION: No focal pneumonia or pulmonary edema. Frances d by: Con Parekh MD on 11/11/2019 1:47 PM Dictated By: CON PAREKH MD Chiara ctronically Signed By: CON PAREKH MD on 11/11/19 1347 Transcribed By: GERALDINE turner 11/11/19 1347 COPY TO: THOMAS WILSON MD Serum or plasma total bilirubin measurement (mass/volume)2019-11-11 12:41:00* Test Item Value Reference Range Interpretation Comments Total Bilirubin (test code = 1975-2) 0.5 0.2-1.2 [facility] HospitalFluoroscopic procedure less than one hour ccypikri5468-86-60 12:41:00* Test Item Value Reference Range Interpretation Comments Aspartate Amino Transf (AST/SGOT) (test code = Aspartate Amino Transf (AST/SGOT)) 25 5-34 [facility] or plasma alanine aminotransferase measurement (enzymatic activity/volume)2019-11-11 12:41:00* Test Item Value Reference Range Interpretation Comments Alanine Aminotransferase (ALT/SGPT) (test code = 1742-6) 31 0-55 [facility] Hospital[facility] or plasma protein measurement (mass/volume)2019-11-11 12:41:00* Test Item Value Reference Range Interpretation Comments Total Protein (test code = 2885-2) 7.2 6.5-8.1 [facility] or plasma albumin measurement (mass/volume)2019-11-11 12:41:00* Test Item Value Reference Range Interpretation Comments Albumin (test code = 1751-7) 3.9 3.5-5.0 [facility] HospitalPlasma globulin measurement (mass/volume) 2019-11-11 12:41:00* Test Item Value Reference Range Interpretation Comments Globulin (test code = 78437-8) 3.3 2.3-3.5 [facility] or plasma albumin/globulin mass gltvj2346-70-40 12:41:00* Test Item Value Reference Range Interpretation Comments Albumin/Globulin Ratio (test code = 1759-0) 1.2 0.8-2.0 [facility] or plasma alkaline phosphatase measurement (enzymatic activity/volume)2019-11-11 12:41:00* Test Item Value Reference Range Interpretation Comments Alkaline Phosphatase (test code = 6768-6) 74 40-150 [facility] HospitalCHEST 2 [id number] 15:45:00 [facility] [address] [place] [address] Patient Name: MIRA MCCORMICK MR #: [id number] : 1955 Age/Sex: 63/M Req #: [id number] Adm Physician: Ordered by: THOMAS WILSON MD Report #: [id number] Location: OR Room/Bed: Procedure: [id number] DX/CHEST 2 VIEWS Ex am Date: 08/07/19 Exam Time: 1520 REPORT STATUS: Signed Exam: Chest radiograph C linical History: Preoperative clearance Findings: The cardiomediastina l silhouette and lungs are normal. The regional skeleton and soft tissue are u nremarkable. There is no evidence of pleural effusion or pneumothorax. I mpression: No radiographic evidence of acute cardiopulmonary disease. Signed by: Dr. Barney Burgess MD on 08/07/2019 3:45 PM Dictated By: FABI BURGESS MD 1545 Transcr ibed By: GERALDINE on 08/07/19 1545 COPY TO: THOMAS WILSON MD
[2019-12-02] MEDS ORDERED: SODIUM CHLORIDE 0.9% 500ML 500 ML ONE (21:44)
--- NOTE | 2019-12-02 22:26 | NUR ---
150 mL noted post irrigation
--- NOTE | 2019-12-02 22:30 | Diagnostic Imaging Report ---
EXAM: CT Pelvis WITH contrast INDICATION: Leaking mederos ^50CC CONTRAST THROUGH MEDEROS, CT CSYTOGRAM ^Y COMPARISON: None. TECHNIQUE: Pelvis were scanned utilizing a multidetector helical scanner from the iliac crest to the pubic symphysis after administration without IV contrast. Coronal and sagittal reformations were obtained. Routine protocol was performed. 15 mL of contrast was instilled through the Mederos catheter into the urinary bladder. Imaging was repeated after voiding IV CONTRAST: 150 mL of Omnipaque 300 ORAL CONTRAST: Water COMPLICATIONS: None RADIATION DOSE: Total DLP: 739.25 mGy*cm Estimated effective dose: (DLP x 0.015 x size factor) mSv CTDIvol has been reviewed. It is below the limits set by the Radiation Protocol Committee (RPC). Dose modulation, iterative reconstruction, and/or weight based adjustment of the mA/kV was utilized to reduce the radiation dose to as low as reasonably achievable. FINDINGS: LINES and TUBES: Mederos catheter in urinary bladder.. GI TRACT: Imaged bowel is unremarkable without evidence of obstruction. PELVIC ORGANS/BLADDER: Air within the urinary bladder likely similar to instrumentation. 50 ml contrast was instilled into the urinary bladder through the Mederos catheter. No extraluminal contrast identified. Mederos catheter balloon appears inflated and well positioned. Small volume residual contrast in the urinary bladder on post void imaging. LYMPH NODES: No lymphadenopathy. VESSELS: Unremarkable. PERITONEUM / RETROPERITONEUM: Small 4.3 x 2.0 cm low density collection with an internal focus of gas along the left external iliac artery, incompletely assessed on noncontrast exam. Multiple pelvic surgical clips. Trace fluid within the lower pelvis likely postsurgical. BONES: Unremarkable. SOFT TISSUES: Skin luz overlie the midline lower abdomen and pelvis. Small right fat-containing inguinal hernia. IMPRESSION: 1. No extravasation of contrast from the bladder lumen. 2. 4.3 x 2.0 cm low-density collection with a internal focus of gas adjacent to the left external iliac artery, incompletely assessed on noncontrast exam. Findings may relate to resolving postoperative changes, rather than abscess. Signed by: Catracho Santana MD on 12/02/2019 10:27 PM
[2019-12-02 22:56] VITALS: BP 40/71
--- NOTE | 2019-12-02 22:57 | NUR ---
mederos removed with tip intact. Patient tolerated well.
== END 2019-12-02 23:00 | disposition home or self-care (01) ==
LOC: ER 20:48
DX: T83.091A Other mechanical complication of indwelling urethral catheter, initial encounter (principal); K40.90 Unilateral inguinal hernia, without obstruction or gangrene, not specified as recurrent
CPT/HCPCS: 72193; 99283; J7040

== ENCOUNTER 2020-01-11 05:15 | Observation (INO) | payer MEDICARE ==
[2020-01-07 15:49] LABS: BASOPHILS # (AUTO) 0.1 (0.0-0.1); BASOPHILS % 0.7 % (0.0-1.0); EOSINOPHILS # (AUTO) 0.3 (0.0-0.4); EOSINOPHILS % 4.1 % (0.0-6.0); HEMATOCRIT 39.4 % (38.2-49.6); HEMOGLOBIN 12.8 g/dL (14.0-18.0); LYMPHOCYTES # (AUTO) 1.7 (1.0-3.2); MEAN CORPUSCULAR HGB CONC 32.5 g/dL (31-35); MEAN CORPUSCULAR VOLUME 92.5 fL (81-99); MONOCYTES # (AUTO) 0.6 (0.2-0.8); MONOCYTES % 7.2 % (4.4-11.3); NEUTROPHILS # (AUTO) 5.4 (2.1-6.9); NEUTROPHILS % 66.6 % (38.7-80.0); PLATELET COUNT 222 x10e3/uL (140-360); RED BLOOD COUNT 4.26 x10e6/uL (4.3-5.7); RED CELL DISTRIBUTION WIDTH 13.5 % (11.7-14.4)
[2020-01-07 16:09] LABS: ANION GAP 12.9 mmol/L (8-16); BLOOD UREA NITROGEN 33 mg/dL (7-26); BUN/CREATININE RATIO 35 (6-25); CALCIUM 8.9 mg/dL (8.4-10.2); CARBON DIOXIDE 23 mmol/L (22-29); CHLORIDE 108 mmol/L (98-107); CREATININE, SERUM 0.95 mg/dL (0.72-1.25); EST GLOMERULAR FILTRATION RATE > 60 ML/MIN (60-); GLUCOSE 134 mg/dL (74-118); POTASSIUM 3.9 mmol/L (3.5-5.1); SODIUM 140 mmol/L (136-145)
[~2020-01-11] VITALS: Ht 170.2 cm; Wt 99.3 kg
[2020-01-11] VITALS (18 sets, daily range): BP systolic 119–138; BP diastolic 71–81
[~2020-01-11 05:15] MED LIST changes: +vit c PO
[2020-01-11] MEDS ORDERED: SODIUM CHLORIDE 0.9% 1000ML 1,000 ML ONE (06:19)
[2020-01-11] MEDS ORDERED: CEFTRIAXONE SOD 1 GM/NS 50 ML 50 ML IV ONE (06:19)
[2020-01-11] MEDS ORDERED: GENTAMICIN 80MG/NS 100 ML 200 ML IV ONE (06:19)
[2020-01-11] MEDS ORDERED: IOPAMIDOL 300MG/ML 50ML INFUS..BTL IV ONE (06:23)
[2020-01-11] MEDS ORDERED: B&O 60MG R/S 60 MG SUPP PR ONE (06:23)
[2020-01-11] MEDS ORDERED: ACETAMINOPHEN 1000 MG/100 ML 100 ML IV ONE (07:18)
[2020-01-11] MEDS ORDERED: ONDANSETRON HCL INJ 2MG/ML 2ML 2 MG/ML VIAL IV PRN (08:15)
[2020-01-11] MEDS ORDERED: ACETAMINOPHEN/CODEINE 300MG - 30MG TAB PO PRN (08:15)
[2020-01-11] MEDS ORDERED: B&O 60MG R/S 60 MG SUPP PR PRN (08:15)
[2020-01-11] MEDS ORDERED: DIPHENHYDRAMINE HCL 25 MG CAP PO PRN (08:15)
[2020-01-11 09:05] LABS: BASOPHILS % 0.7 % (0.0-1.0); EOSINOPHILS # (AUTO) 0.2 (0.0-0.4); EOSINOPHILS % 3.9 % (0.0-6.0); HEMATOCRIT 35.9 % (38.2-49.6); HEMOGLOBIN 11.3 g/dL (14.0-18.0); LYMPHOCYTES # (AUTO) 1.5 (1.0-3.2); LYMPHOCYTES % 28.1 % (18.0-39.1); MEAN CORPUSCULAR HEMOGLOBIN 29.9 pg (28-32); MEAN CORPUSCULAR HGB CONC 31.5 g/dL (31-35); MONOCYTES # (AUTO) 0.2 (0.2-0.8); MONOCYTES % 2.9 % (4.4-11.3); NEUTROPHILS # (AUTO) 3.5 (2.1-6.9); PLATELET COUNT 183 x10e3/uL (140-360); RED BLOOD COUNT 3.78 x10e6/uL (4.3-5.7); RED CELL DISTRIBUTION WIDTH 13.9 % (11.7-14.4)
[2020-01-11 09:24] LABS: ANION GAP 13.4 mmol/L (8-16); BLOOD UREA NITROGEN 24 mg/dL (7-26); BUN/CREATININE RATIO 30 (6-25); CARBON DIOXIDE 22 mmol/L (22-29); CHLORIDE 112 mmol/L (98-107); CREATININE, SERUM 0.81 mg/dL (0.72-1.25); EST GLOMERULAR FILTRATION RATE > 60 ML/MIN (60-); GLUCOSE 124 mg/dL (74-118); POTASSIUM 4.4 mmol/L (3.5-5.1); SODIUM 143 mmol/L (136-145)
[2020-01-11] MEDS: D5.45%NS/KCL 20MEQ 1,000 ML IV SCH ×2 (11:21→18:30)
[2020-01-11] MEDS: DOCUSATE SODIUM 100 MG CAP PO SCH ×2 (11:59→17:04)
[2020-01-11] MEDS ORDERED: FENTANYL CITRATE/PF 100MCG/2 ML INJ ONE (12:48)
[2020-01-11] MEDS ORDERED: MIDAZOLAM HCL 2 MG/2 ML VIAL ONE (12:48)
--- NOTE | 2020-01-11 17:04 | NUR ---
Pt states he had a bm without difficulty, formed. Still taking his stool softeners as ordered. Irrigation continuos with bag #6 hanging. Wif at bedside. patinet denies pain. Urine is pink withou cloths with bag dial about 1/2 way opn. patient tolerating very well.
[2020-01-11] MEDS ORDERED: ONDANSETRON HCL INJ 2MG/ML 2ML 2 MG/ML VIAL ONE (19:27)
[2020-01-11] MEDS ORDERED: DEXAMETHASONE SOD PHOS INJ 4 MG/ML VIAL ONE (19:27)
[2020-01-11] MEDS ORDERED: SEVOFLURANE INHAL SOLN 250 ML PEN BTL ONE (19:27)
[2020-01-11] MEDS ORDERED: PROPOFOL IV EMULSION 10 MG/ML 20 ML VIAL ONE (19:27)
[2020-01-11] MEDS ORDERED: KETOROLAC TROMETHAMINE 30 MG/ML VIAL ONE (19:27)
[2020-01-11] MEDS ORDERED: LIDOCAINE HCL 2% LOCAL INJ 5 ML SDV VIAL INJ ONE (19:27)
[2020-01-11] MEDS: PHENAZOPYRIDINE HCL 100 MG TAB PO PRN (21:33)
[2020-01-12] VITALS (9 sets, daily range): BP systolic 115–163; BP diastolic 64–76
[2020-01-12] MEDS: D5.45%NS/KCL 20MEQ 1,000 ML IV SCH ×3 (00:30→16:43)
[2020-01-12 05:50] LABS: BASOPHILS % 0.2 % (0.0-1.0); EOSINOPHILS # (AUTO) 0.1 (0.0-0.4); HEMATOCRIT 34.9 % (38.2-49.6); LYMPHOCYTES # (AUTO) 1.4 (1.0-3.2); MEAN CORPUSCULAR HEMOGLOBIN 29.8 pg (28-32); MEAN CORPUSCULAR HGB CONC 31.5 g/dL (31-35); MEAN CORPUSCULAR VOLUME 94.6 fL (81-99); MONOCYTES # (AUTO) 0.6 (0.2-0.8); NEUTROPHILS # (AUTO) 7.8 (2.1-6.9); NEUTROPHILS % 78.4 % (38.7-80.0); PLATELET COUNT 188 x10e3/uL (140-360); RED BLOOD COUNT 3.69 x10e6/uL (4.3-5.7); RED CELL DISTRIBUTION WIDTH 13.6 % (11.7-14.4)
[2020-01-12] MEDS: CEFTRIAXONE SOD 1 GM/NS 50 ML 50 ML IV SCH (06:17)
[2020-01-12 06:21] LABS: ANION GAP 9.9 mmol/L (8-16); BLOOD UREA NITROGEN 21 mg/dL (7-26); BUN/CREATININE RATIO 27 (6-25); CALCIUM 7.9 mg/dL (8.4-10.2); CARBON DIOXIDE 21 mmol/L (22-29); CHLORIDE 112 mmol/L (98-107); CREATININE, SERUM 0.77 mg/dL (0.72-1.25); EST GLOMERULAR FILTRATION RATE > 60 ML/MIN (60-); GLUCOSE 150 mg/dL (74-118); POTASSIUM 3.9 mmol/L (3.5-5.1); SODIUM 139 mmol/L (136-145)
--- NOTE | 2020-01-12 06:52 | NUR ---
H&P cc: bladder cancer mgmt HPI: 64yoM, PCP , urology , here for TURP in mgmt of BPH. Had procedure, now recovering; pain contorlled; PMH: Prostate cancer dx 09/2019, HTN, GERD, obesity, prostate cancer s/p pelvic Lymphadenectomy (PLND), PreDM , hx cigs Pshx: hernia repair, PLND (LN dissection) Allergies; see emr Fh/SH; ; hx cigs meds; see MAR ROS; no f/c/s/N/V/D/VILLANUEVA/cp/sob/skin rash/confusion/vision changes/mood changes v/s; revd PE tired appearing anicteric ns1s2 mod bs soft; Contreras with pink urine scd; no edema skin dry n. affect labs/meds revd A/P: BPH- s/p TURP Prostate cancer with hx B/L PLND- f/u out for mgmt PreDM- check lipids/hba1c Obesity- 1/2 portion sizes BMI 34.2- as above Nicotine dependence in remission- f/u outpt Pelvic pain- prn pain meds Prop: scd DIspo; monitor; f/u labs; TONIA ALONZO MD, PHD.
[2020-01-12 07:41] LABS: CHOL/HDL RATIO 3.4 (3.9-4.7)
[2020-01-12] MEDS: DOCUSATE SODIUM 100 MG CAP PO SCH ×2 (08:43→16:42)
--- NOTE | 2020-01-12 10:34 | Operative Report ---
DATE OF PROCEDURE: 01/11/2020 SURGEON: Ramirez Liu MD PREOPERATIVE DIAGNOSES: 1. Obstructive benign prostatic hyperplasia. 2. History of urolithiasis. POSTOPERATIVE DIAGNOSES: 1. Obstructive benign prostatic hyperplasia. 2. History of urolithiasis. 3. Urethral stricture disease of the fossa navicularis. 4. 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 OPERATIONS PERFORMED: Note, these all staged procedures performed for the above diagnoses and they are not included in the global period of the patient's previous pelvic lymphadenectomy. 1. Cystourethroscopy with calibration and dilation of distal urethral stricture (separate procedure performed for the diagnosis of stricture). 2. Cystourethroscopy with bilateral ureteral catheterization and retrograde pyelography (separate procedure performed to history of urolithiasis). 3. Interpretation of retrograde ureteropyelography, no radiologist present. 4. Interpretation of cystography. No radiologist present. 5. Cystourethroscopy with transurethral resection of prostate utilizing a plasma button electrode (separate procedure performed to the obstructive BPH). ANESTHESIA: General. COMPLICATIONS: None. CLINICAL SUMMARY: Pb Fernández is a 64-year-old man with obstructive BPH and high-grade prostate cancer. The patient underwent pelvic lymphadenectomy. That lymphadenectomy was complicated by the fact that the patient's bladder was with urine too. The intraperitoneal mesh placed as part of a laparoscopic inguinal hernia repair. Dissection of the bladder off the mesh necessitated cystorrhaphy of the dome of the bladder. The patient is on hormone therapy with Lupron and was brought to the operating room for transurethral resection of prostate. The plan is to allow the patient to get the 6 months on hormonal therapy prior to proceeding radiotherapy. The patient is aware of the risks of bleeding, infection, injury to adjacent structures, incontinence, impotence, retrograde ejaculation, need for additional procedures and elected to proceed. OPERATIVE PROCEDURE IN DETAIL: Pb Fernández was properly identified, taken to the operating room, placed on the cystoscopy table in supine position. Anesthesia was uneventfully begun. The patient was then carefully and gently repositioned in the dorsal lithotomy position with all pressure points well padded. His external genitalia were prepared and draped in the usual sterile fashion. The cystoscope sheath with the visual obturator in place and was atraumatically inserted into the patient's urethral meatus, but it could not be advanced. Female sounds were then utilized to calibrate the fossa navicularis with approximately 14-Spanish in size and progressively dilated to 28-Spanish in size. This allowed us to easily place the cystoscope sheath into the patient's urethra. The remainder of the urethra was unremarkable. Sphincteric region was normal. The prostate bed was significant for visually obstructing bilobar BPH. Once in patient's bladder where there were grade 2 trabeculations, but there were no tumors and there were no stones. There was a large-mouth diverticular like formation at the dome of the bladder. No suspicious nodule. An 8-Spanish catheter was used to cannulate each ureter and retrograde ureteral pyelograms were performed. Interpretation of retrograde ureteropyelography; contrast was instilled in retrograde fashion bilaterally. There were no tumors, no stones, no diverticula. Unobstructed drainage was inserted bilaterally fluoroscopically. Contrast was then injected via the cystoscope and performing a cystogram. Interpretation of cystogram. The dome of the bladder appeared to be one large- mouth diverticulum. It did not obtain any filling defect and there was no evidence of extravasation. There was complete drainage noted. Vesicoureteric reflux could not be judged due to prior retrograde pyelogram. The cystoscope was withdrawn. The resectoscope was placed with the obturator placed without any difficulty. Transurethral resection of prostate was then carried out utilizing plasma button electrode. We vaporized the prostate from the bladder neck tube, but never passed the verumontanum and down to the surgical capsule. A wide open prostatic bed was achieved. Pinpoint electrocautery was utilized to achieve hemostasis. The patient's resectoscope was withdrawn. Contreras catheter was then placed. It was irrigated to and fro to ensure it worked properly. Belladonna and opium suppository were placed revealing a 40 g prostate that was smooth, nonfluctuant without any nodules. The patient was then uneventfully reversed from anesthesia and taken to recovery room in stable condition. There were no complications to the procedure. He tolerated the procedure well. Estimated blood loss was minimum. We will continue to follow and manage this patient. Ramirez Liu MD [place]/MODAnalia /[id number] cc: Lorenzo England MD MTDD
[2020-01-12] MEDS: PHENAZOPYRIDINE HCL 100 MG TAB PO PRN (14:19)
--- NOTE | 2020-01-12 19:00 | NUR ---
Received patient in bed, patient is alert and oriented x 3, safety and fall precaution maintained at this time, bed in lowest position and locked, needed items beside bed, call calvin close to patient. patient is instructed to call nurses at all times for help, verbalized understanding. patient is currently stable, will continue to monitor.
[2020-01-13] VITALS: BP 163/85
[2020-01-13] MEDS: D5.45%NS/KCL 20MEQ 1,000 ML IV SCH (02:30)
[2020-01-13 04:00] VITALS: BP 137/71
[2020-01-13 05:36] LABS: BASOPHILS # (AUTO) 0.1 (0.0-0.1); BASOPHILS % 0.6 % (0.0-1.0); EOSINOPHILS # (AUTO) 0.3 (0.0-0.4); HEMOGLOBIN 11.4 g/dL (14.0-18.0); LYMPHOCYTES % 25.1 % (18.0-39.1); MEAN CORPUSCULAR HEMOGLOBIN 30.6 pg (28-32); MEAN CORPUSCULAR HGB CONC 32.6 g/dL (31-35); MEAN CORPUSCULAR VOLUME 94.1 fL (81-99); MONOCYTES # (AUTO) 0.6 (0.2-0.8); MONOCYTES % 8.1 % (4.4-11.3); NEUTROPHILS # (AUTO) 4.9 (2.1-6.9); NEUTROPHILS % 61.7 % (38.7-80.0); PLATELET COUNT 183 x10e3/uL (140-360); RED BLOOD COUNT 3.72 x10e6/uL (4.3-5.7); RED CELL DISTRIBUTION WIDTH 13.8 % (11.7-14.4)
[2020-01-13] MEDS: CEFTRIAXONE SOD 1 GM/NS 50 ML 50 ML IV SCH (05:44)
[2020-01-13] MEDS: PHENAZOPYRIDINE HCL 100 MG TAB PO PRN ×2 (05:47)
[2020-01-13 06:03] LABS: ANION GAP 11.2 mmol/L (8-16); BLOOD UREA NITROGEN 18 mg/dL (7-26); BUN/CREATININE RATIO 23 (6-25); CALCIUM 8.1 mg/dL (8.4-10.2); CARBON DIOXIDE 23 mmol/L (22-29); CHLORIDE 110 mmol/L (98-107); CREATININE, SERUM 0.78 mg/dL (0.72-1.25); EST GLOMERULAR FILTRATION RATE > 60 ML/MIN (60-); GLUCOSE 105 mg/dL (74-118); POTASSIUM 4.2 mmol/L (3.5-5.1); SODIUM 140 mmol/L (136-145)
--- NOTE | 2020-01-13 06:44 | NUR ---
D/C summary Principal Dx: BPH- s/p TURP Secondary Dx: Prostate cancer with hx B/L PLND- f/u out for mgmt PreDM- check lipids/hba1c Obesity- 1/2 portion sizes BMI 34.2- as above Nicotine dependence in remission- f/u outpt Pelvic pain- prn pain meds Prop: scd DIspo; monitor; f/u labs; 10-28 cont care; d/c home stable f/u pcp 2 days and 1 week d/c>35mins TONIA ALONZO MD, PHD.
[2020-01-13 08:14] VITALS: BP 131/70
[2020-01-13 08:16] VITALS: BP 131/70
[2020-01-13 12:00] VITALS: BP 162/78
[2020-01-13] MEDS ORDERED: ONDANSETRON HCL 4 MG ORAL DISINTEGRATING TAB PO PRN (12:00)
[2020-01-13] MEDS ORDERED: TYLENOL # 31 EA PO (12:03)
[2020-01-13] MEDS ORDERED: LEVOFLOXACIN250 MG PO (12:04)
--- NOTE | 2020-01-13 12:10 | NUR ---
Pt discharged home at this time. Pt is aox4 at time of discharge. Pt educations done regarding mederos catheter and changing from leg bag to overnight bag. Pt was able to properly demonstrate how to change mederos bags. Pt understands that he has a follow up appointment on 01/18/[address] Liu. Denies any pain at this time. Pt left with mederos in place attached to leg bag, light sadiq urine clear urine noted.
== END 2020-01-13 12:17 | disposition home or self-care (01) ==
LOC: OR 05:15 → PACU V 08:08 → INTOOBSV 08:08 → MED/SURG 09:30
PROVIDERS: ADMIT Internal Medicine; ATTEND Internal Medicine
DX: N40.1 Benign prostatic hyperplasia with lower urinary tract symptoms (principal); N13.8 Other obstructive and reflux uropathy; N35.819 Other urethral stricture, male, unspecified site; N32.3 Diverticulum of bladder; Z11.59 Encounter for screening for other viral diseases
CPT/HCPCS: 36415 ×4; 52005; 52601; 53855; 74420; 80048 ×4; 80061; 83036; 83735; 85025 ×4; C1758; G0378 ×3; J0131; J0696 ×3; J1100; J1580; J1885; J2001; J2250; J2405; J2704; J3010; J7030; Q9967; U0002

== ENCOUNTER 2020-01-16 17:25 | Emergency (ER) | payer MEDICARE ==
[~2020-01-16] VITALS: Ht 170.2 cm; Wt 99.3 kg
[~2020-01-16 17:25] MED LIST changes: +LEVOFLOXACIN250 MG PO; +TYLENOL # 31 EA PO
--- NOTE | 2020-01-16 18:09 | NUR ---
rec'd pt in rm 6 with c/o a catheter that's not draining. placed on the monitor and in a gown. v.s.s.
--- NOTE | 2020-01-16 18:58 | Emergency Department Note ---
History of Present Illnes History of Present Illness Chief Complaint: Genitourinary History of Present Illness This is a 64 year old male PATIENT OF DR. BAPTISTE. HAD TURP ON December. HE IS SCHEDULED FOR REMOVAL OF KENNEDY CATHETER ON SaturdayJanuary HE COMES IN TODAY BECAUSE HIS CATHETER IS LEAKING MORE THEN NORMAL AND HAS HAD TO CHANGE THE PULL UP DIAPER 5 TIMES . Historian: Patient Arrival Mode: Car Additional Treatment FABRICATOR SPECIAL ITEMS: NONE Onset (how long ago): hour(s) (8) Location: kennedy catheter Quality: catheter not draining, leaking around catheter Radiation: Reports non-radiation Severity: mild Onset quality: gradual Duration (how long): hour(s) (8) Timing of current episode: constant Progression: worsening Chronicity: new Context: Reports recent surgery (turp) Relieving factors: none Exacerbating factors: none Associated symptoms: Reports denies other symptoms Past Medical/Family History Physician Review I have reviewed the patient's past medical and family history. Any updates have been documented here. Past Medical History Recent Fever: No Clinical Suspicion of Infectio: No New/Unexplained Change in Ment: No Past Medical History: Hypertension, GERD Other Medical History: sleep apnea with bipap Past Surgical History: Hernia Repair Other Surgery: LYMPH NODES REMOVAL OF PROSTATE Social History Smoking Cessation: Never Smoker Alcohol Use: None Any Illegal Drug Use: No Family History Family history of heart diseas: No Review of Systems Review of Systems Constitutional: Reports no symptoms EENTM: Reports no symptoms Cardiovascular: Reports no symptoms Respiratory: Reports no symptoms Gastrointestinal: Reports no symptoms Genitourinary: Reports as per HPI Musculoskeletal: Reports no symptoms Integumentary: Reports no symptoms Neurological: Reports no symptoms Psychological: Reports no symptoms Endocrine: Reports no symptoms Hematological/Lymphatic: Reports no symptoms Physical Exam Related Data Allergies: Coded Allergies: No Known Allergies (Unverified , 01/16/20) Triage Vital Signs Vital Signs Date Time Temp Pulse Resp B/P (MAP) Pulse Ox O2 Delivery O2 Flow Rate FiO2 01/16/20 17:34 98.3 88 18 162/80 100 Room Air Vital signs reviewed: Yes Physical Exam CONSTITUTIONAL Constitutional: Present well-developed, Present well-nourished; Absent distressed HENT HENT: Present normocephalic, Present atraumatic, Present oropharynx clear/moist, Present nose normal HENT L/R: Present left ext ear normal, Present right ext ear normal EYES Eyes: Reports PERRL, Reports conjunctivae normal NECK Neck: Present ROM normal PULMONARY Pulmonary: Present effort normal, Present breath sounds normal CARDIOVASCULAR Cardiovascular: Present regular rhythm, Present heart sounds normal, Present capillary refill normal, Present normal rate GASTROINTESTINAL Abdominal: Present soft, Present nontender, Present bowel sounds normal GENITOURINARY Genitourinary: Present penis normal, Present other (kennedy catheter in place with pink tinged urine in bag) SKIN Skin: Present warm, Present dry MUSCULOSKELETAL Musculoskeletal: Present ROM normal NEUROLOGICAL Neurological: Present alert, Present oriented x 3, Present no gross motor or sensory deficits PSYCHOLOGICAL Psychological: Present mood/affect normal, Present judgement normal Assessment & Plan Medical Decision Making MDM pt w/p turp this week with clogged kennedy cath i spoke with dr márquez, he requests irrigate kennedy until clear kennedy irrigated now draining clear, sadiq color urine, no gross hematuria present Assessment & Plan Final Impression: (1) Malfunction of Kennedy catheter Depart Disposition: HOME, SELF-CARE Last Vital Signs Date Time Temp Pulse Resp B/P (MAP) Pulse Ox O2 Delivery O2 Flow Rate FiO2 01/16/20 18:09 98.5 90 16 146/78 97 Room Air Home Meds Reported Medications Levofloxacin (LEVOFLOXACIN) 250 Mg Tablet, 500 MG PO DAILY, TAB 01/13/20 Acetaminophen/Codeine* (TYLENOL # 3*) 1 Ea Tab, 1 TAB PO Q4HR PRN for pain 01/13/20 [vit c] No Conflict Check, PO DAILY 01/07/20 Doxazosin Mesylate (CARDURA) 4 Mg Tablet, 1 TAB PO HS 11/16/19 Garlic (GARLIC) 1 Each Tablet, 1 TAB PO PRN 11/16/19 Krill/Om-3/Dha/Epa/Phospho/Ast (Megared Conyers-3 Krill 350 mg) 1 Each Capsule, 1 CAP PO DAILY 11/16/19 Cetirizine Hcl (ZYRTEC) 10 Mg Capsule, 1 CAP PO DAILY THERAPEUTICALLY SUBSTITUTED WITH LORATIDINE 10MG 11/16/19 [citracal] No Conflict Check, PO DAILY 11/16/19 Multivit-Min/FA/Lycopen/Lutein (Centrum Silver Men Tablet) 1 Each Tablet, 1 TAB PO DAILY 11/16/19 KRISTINE JAMES MD Jan 16, 2020 18:58
--- OUTSIDE RECORDS SUMMARY | 2020-01-21 18:22 | XMS REPORT | Continuity of Care Document ---
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 Allergies, Adverse Reactions, Alerts This patient has no known allergies or adverse reactions. Social History Social Habit Start Date Stop Date Quantity Comments Source Sex Assigned At 1955 00:00:00 1955 00:00:[address] [facility] Medications Ordered Medication Name Filled Medication Name Start Date Stop Da te Current Medication? Ordering Clinician Indication Dosage Frequency Signature (SIG) Comments Components Source Docusate Sodium (Colace) 100 Mg CAP Docusate Sodium (Colace) 100 Mg CAP 2019-11-23 10:39:00 Yes [address] [facility] Pantoprazole Sod (Protonix) 40 Mg/Ml SUSP Pantoprazole Sod (Protonix) 40 Mg/Ml SUSP 2019-11-23 10:39:[address] [facility] Sennosides (Senokot) 8.6 Mg TABLET Sennosides (Senokot) 8.6 Mg TABLET 2019-11-23 10:39:00 Yes 8.[address] [facility] Acetaminophen/Codeine Phosphate (Tylenol # 3*) 1 Ea TA B Acetaminophen/Codeine Phosphate (Tylenol # 3*) 1 Ea TAB Yes 1 Every 4 Hours as needed for Moderate Pain (4-6) [facility] Cetirizine Hcl (Zyrtec) 10 Mg CAPSULE Cetirizine Hcl (Zyrtec) 10 Mg CAPSULE Yes [address] [facility] Citracal Citracal Yes Daily [facility] Doxazosin Mesylate (Cardura) 4 Mg TABLET Doxazosin Mes ylate (Cardura) 4 Mg TABLET Yes 1 Bedtime [facility] Garlic Garlic Yes 1 Daily [facility] Krill/Om-3/Dha/Epa/Phospho/Ast (Megared Redfox-3 Krill 350 Mg) 1 Each CAPSULE Krill/Om-3/Dha/Epa/Phospho/Ast (Megared Redfox-3 Krill 350 Mg) 1 Each CAPSULE Yes [address] [facility] Multivit-Min/Fa/Lycopen/Lutein (Centrum Silver Men Tab let) 1 Each TABLET Multivit-Min/Fa/Lycopen/Lutein (Centrum Silver Men Tablet) 1 Each TABLET Yes [address] [facility] Sulfamethoxazole/Trimethoprim (Bactrim Ds Tablet) 1 Ea ch TABLET Sulfamethoxazole/Trimethoprim (Bactrim Ds Tablet) 1 Each TABLET Yes 1 Twice A Day [facility] Vitamin D3 Vitamin D3 Yes Daily [facility] Cetirizine Hcl (Zyrtec) 10 Mg CAPSULE Cetirizine Hcl (Zyrtec) 10 Mg CAPSULE 2019-11-13 00:00:[address] [facility] Doxazosin Mesylate Doxazosin Mesylate 2019-11-13 00:00:00 No 2 Bedtime [facility] Vital Signs Vital Name Observation Time Observation Value Comments Source Weight 2019-12-02 20:32:00 207 [lb_av] [facility] BMI (Body Mass Index) 2019-12-02 20:32:00 32.4 kg/m2 [facility] Body Temperature 2019-11-23 12:31:00 98.2 [degF] [facility] BMI (Body Mass Index) 2019-11-17 01:42:00 32.4 kg/m2 [facility] Weight 2019-11-16 17:28:00 207 [lb_av] [facility] Procedures Procedure Date / Time Performed Performing Clinician Penny webb Computed tomography of pelvis with contrast 2019-12-02 00:00:00 [facility] EXCISION OF PELVIS LYMPHATIC, OPEN APPROACH, DIAGNOSTIC 00:00:00 [facility] INSPECTION OF BLADDER, ENDO 2019-11-16 00:00:00 [facility] REPAIR BLADDER, OPEN APPROACH 2019-11-16 00:00:00 [facility] X-ray of chest, two views 2019-11-11 00:00:00 [facility] CYSTOSCOPY AND TREATMENT 2019-08-12 00:00:00 [facility] BIOPSY OF PROSTATE 2019-08-12 00:00:00 [facility] Ultrasound of prostate with transrectal approach 2019-08-12 00:0 0:00 [facility] Intraoperative ultrasound 2019-08-12 00:00:00 [facility] X-ray of chest, two views 2019-08-07 00:00:00 [facility] Plan of Care Planned Activity Planned Date Details Comments Source Instructions Kennedy Catheter Care [facility] Encounters Start Date/Time End Date/Time Encounter Type Admission Type [facility] Care Department Encounter ID Source 2019-11-16 15:26:00 2019-11-23 13:06:00 Discharged Inpatient 3 TONIA ALONZO [facility] [id number] [facility] 2019-08-12 07:48:00 2019-08-12 07:48:00 Registered Surgical Day Car e 3 THOMAS WILSON [facility] [id number] [facility] Results Test Description Test Time Test Comments Results Result Comments Source CT PELVIS W 2019-12-02 22:12:00 [facility] [address] [address] Patient Name: MIRA MCCORMICK MR #: [id number] : 1955 Age/Sex: 64/M Req #: [id number] Adm Physician: Ordered by: KRISTINE JAMES MD Report #: [id number] Location: ER Room/Bed: Procedure: [id number] CT/CT PELVIS W Exam Date: 12/02/19 Exam Time: 2200 REPORT STATUS: Signed EXAM: CT Pelvis WITH contrast INDICATION: Leaking kennedy 50CC CONTRAST THROUGH KENNEDY, CT CSYTOGRAM Y COMPARISON: None. TECHNIQUE: Pelvis were scanned utilizing a multidetector helical scanner from the iliac crest to the pubic symphysis after administration without IV contrast. Coronal and sagittal reformations were obtained. Routine protocol was performed. 15 mL of contrast was instilled through the Kennedy catheter into the urinary bladder. Imaging was repeated after voiding IV CONTRAST: 150 mL of Omnipaque 300 ORAL CONTRAST: Water COMPLICATIONS: None RADIATION DOSE: Total DLP: 739.25 mGy*cm Estimated effective dose: (DLP x 0.015 x size factor) mSv CTDIvol has been reviewed. It is below the limits set by the Radiation Protocol Committee (RPC). Dose modulation, iterative reconstruction, and/or weight based adjustment of the mA/kV was utilized to reduce the radiation dose to as low as reasonably achievable. FINDINGS: LINES and TUBES: Kennedy catheter in urinary bladder.. GI TRACT: Imaged bowel is unremarkable without evidence of obstruction. PELVIC ORGANS/BLADDER: Air within the urinary bladder likely similar to instrumentation. 50 ml contrast was instilled into the urinary bladder through the Kennedy catheter. No extraluminal contrast identified. Kennedy catheter balloon appears inflated and well positioned. Small volume residual contrast in the urinary bladder on post void imaging. LYMPH NODES: No lymphadenopathy. VESSELS: Unremarkable. PERITONEUM / RETROPERITONEUM: Small 4.3 x 2.0 cm low density collection with an internal fo cus of gas along the left external iliac artery, incompletely assessed on noncontrast exam. Multiple pelvic surgical clips. Trace fluid within the lower pelvis likely postsurgical. BONES: Unremarkable. SOFT TISSUES: Skin luz overlie the midline lower abdomen and pelvis. Small right fat- containing inguinal hernia. IMPRESSION: 1. No extravasation of contrast from the bladder lumen. 2. 4.3 x 2.0 cm low-density collection with a internal focus of gas adjacent to the left external iliac artery, incompletely assessed on noncontrast exam. Findings may relate to resolving postoperative changes, rather than abscess. Signed by: Cheri Santana MD on 12/02/2019 10:27 PM Dictated By: CHERI SANTANA MD 26 Transcribed By: GERALDINE on 12/02/192226 COPY TO: KRISTINE JAMES MD ABDOMEN-1VIEW (KUB) 2019-11-22 12:13:[address] [address] Patient Name: MIRA MCCORMICK MR #: [id number] : 1955 Age/Sex: 64/M Req #: [id number] Adm Physician: TONIA ALONZO MD Ordered by: THOMAS WILSON MD Report #: [id number] Location: MED/SURG Room/Bed: [facility] Procedure: DX/ABDOMEN-1VIEW (KUB) Exam Date: 11/22/19 Exam Time: [...] Count (test code = 6690-2) 7.82 4.8-10.8 [facility] count (number/volume)2019-11-22 05:30:00* Test Item Value Reference Range Interpretation Comments Red Blood Count (test code = 789-8) 4.19 4.3-5.7 [facility] measurement (moles/volume)2019-11-22 05:30:00* Test Item Value Reference Range Interpretation Comments Hemoglobin (test code = 02729-9) 12.3 14.0-18.0 [facility] blood hematocrit (volume fraction)2019-11-22 05:30:00* Test Item Value Reference Range Interpretation Comments Hematocrit (test code = 4544-3) 38.1 38.2-49.6 [facility]Autom[facility] erythrocyte mean corpuscular fvbnyc8626-61-64 05:30:00* Test Item Value Reference Range Interpretation Comments Mean Corpuscular Volume (test code = 787-2) 90.9 81-99 [facility]Autom[facility] erythrocyte mean corpuscular hemoglobin (mass per erythrocyte)2019-11-22 05:30:00* Test Item Value Reference Range Interpretation Comments Mean Corpuscular Hemoglobin (test code = 785-6) 29.4 28-32 [facility]Autom[facility] erythrocyte mean corpuscular hemoglobin concentration measurement (mass/volume)2019-11-22 05:30:00* Test Item Value Reference Range Interpretation Comments Mean Corpuscular Hemoglobin Concent (test code = 786-4) 32.3 31-35 [facility] HospitalRDW HncWw-Vag2221-54-06 05:30:00* Test Item Value Reference Range Interpretation Comments Red Cell Distribution Width (test code = 42069-4) 12.3 11.7 -14.4 [facility] HospitalAutom[facility] blood platelet count (count/volume)2019-11-22 05:30:00* Test Item Value Reference Range Interpretation Comments Platelet Count (test code = 777-3) 277 140-360 [facility] HospitalAutom[facility] blood segmented neutrophil count as percentage of total audzfwweiv9517-03-69 05:30:00* Test Item Value Reference Range Interpretation Comments Neutrophils (%) (Auto) (test code = 68257-5) 61.6 38.7-80.0 [facility]Autom[facility] blood lymphocyte count as percentage ot total dqokbwzpce1039-76-21 05:30:00* Test Item Value Reference Range Interpretation Comments Lymphocytes (%) (Auto) (test code = 736-9) 20.3 18.0-39.1 [facility] HospitalAutom[facility] blood monocyte count as percentage of total mnereuwtzi7154-75-30 05:30:00* Test Item Value Reference Range Interpretation Comments Monocytes (%) (Auto) (test code = 5905-5) 10.4 4.4-11.3 [facility]Autom[facility] blood eosinophil count as percentage of total ddwbxfrxer8566-31-61 05:30:00* Test Item Value Reference Range Interpretation Comments Eosinophils (%) (Auto) (test code = 713-8) 6.5 0.0-6.0 [facility] HospitalAutomated blood basophil count as percentage of total bzjodbvdiw4483-17-72 05:30:00* Test Item Value Reference Range Interpretation Comments Basophils (%) (Auto) (test code = 706-2) 0.8 0.0-1.0 [facility] HospitalFluoroscopic procedure less than one hour rphizmok6628-12-78 05:30:00* Test Item Value Reference Range Interpretation Comments IM GRANULOCYTES % (test code = IM GRANULOCYTES %) 0.4 0.0- 1.0 [facility] HospitalAutomated blood neutrophil count 2019-11-22 05:30:00* Test Item Value Reference Range Interpretation Comments Neutrophils # (Auto) (test code = 751-8) 4.8 2.1-6.9 [facility]Blood lymphocytes count (number/volume) 2019-11-22 05:30:00* Test Item Value Reference Range Interpretation Comments Lymphocytes # (Auto) (test code = 30623-0) 1.6 1.0-3.2 [facility] HospitalBlood monocytes automated count (number/volume)2019-11-22 05:30:00* Test Item Value Reference Range Interpretation Comments Monocytes # (Auto) (test code = 742-7) 0.8 0.2-0.8 [facility] HospitalAutomated blood eosinophil count 2019-11-22 05:30:00* Test Item Value Reference Range Interpretation Comments Eosinophils # (Auto) (test code = 711-2) 0.5 0.0-0.4 [facility] HospitalAutomated blood basophil count (count/volume)2019-11-22 05:30:00* Test Item Value Reference Range Interpretation Comments Basophils # (Auto) (test code = 704-7) 0.1 0.0-0.1 [facility] HospitalFluoroscopic procedure less than one hour wvxocihe3935-57-57 05:30:00* Test Item Value Reference Range Interpretation Comments Absolute Immature Granulocyte (auto (sirisha t code = Absolute Immature Granulocyte (auto) 0.03 0-0.1 [facility] sodium measurement (moles/volume)2019-11-22 05:30:00* Test Item Value Reference Range Interpretation Comments Sodium Level (test code = 2951-2) 138 136-145 [facility] or plasma potassium measurement (moles/volume)2019-11-22 05:30:00* Test Item Value Reference Range Interpretation Comments Potassium Level (test code = 2823-3) 4.4 3.5-5.1 [facility] or plasma chloride measurement (moles/volume)2019-11-22 05:30:00* Test Item Value Reference Range Interpretation Comments Chloride Level (test code = 2075-0) 104 98-107 [facility] or plasma carbon dioxide, total measurement (moles/volume)2019-11-22 05:30:00* Test Item Value Reference Range Interpretation Comments Carbon Dioxide Level (test code = 2028-9) 25 22-29 [facility] or plasma anion hnk3442-85-85 05:30:00* Test Item Value Reference Range Interpretation Comments Anion Gap (test code = 16355-5) 13.4 8-16 [facility] or plasma urea nitrogen measurement (mass/volume)2019-11-22 05:30:00* Test Item Value Reference Range Interpretation Comments Blood Urea Nitrogen (test code = 3094-0) 7 7-26 [facility] or plasma creatinine measurement (mass/volume)2019-11-22 05:30:00* Test Item Value Reference Range Interpretation Comments Creatinine (test code = 2160-0) 0.79 0.72-1.25 [facility] or plasma urea nitrogen/creatinine mass zlatg9440-90-04 05:30:00* Test Item Value Reference Range Interpretation Comments BUN/Creatinine Ratio (test code = 3097-3) 9 6-25 [facility] HospitalEstimated glomerular filtration rate (GFR) aznxobfwqginb8276-89-20 05:30:00* Test Item Value Reference Range Interpretation Comments Estimat Glomerular Filtration Rate (test code = 040661356) > 60 >60 Ranges were taken from the National Kidney Disease Education Program and the [facility] literature.Reference ranges:60 or greater: Xyxsil68-74 ( for 3 consecutive months): Chronic kidney disease 15 or less: Kidney failureSt. Luke's Baptist HospitalGlucose javvawjlkry9143-51-80 05:30:00* Test Item Value Reference Range Interpretation Comments Glucose Level (test code = QYT4683) 117 74-118 [facility]ester[facility] or plasma calcium measurement (mass/volume)2019-11-22 05:30:00* Test Item Value Reference Range Interpretation Comments Calcium Level (test code = 14625-2) 8.0 8.4-10.2 [facility] HospitalBlood leukocytes automated count (number/volume)2019-11-22 05:30:00* Test Item Value Reference Range Interpretation Comments White Blood Count (test code = 6690-2) 7.82 4.8-10.8 [facility] HospitalBlood erythrocytes automated count (number/volume)2019-11-22 05:30:00* Test Item Value Reference Range Interpretation Comments Red Blood Count (test code = 789-8) 4.19 4.3-5.7 [facility] HospitalBlood hemoglobin measurement (moles/volume)2019-11-22 05:30:00* Test Item Value Reference Range Interpretation Comments Hemoglobin (test code = 87344-4) 12.3 14.0-18.0 [facility] HospitalAutomated blood hematocrit (volume fraction)2019-11-22 05:30:00* Test Item Value Reference Range Interpretation Comments Hematocrit (test code = 4544-3) 38.1 38.2-49.6 [facility] HospitalAutomated erythrocyte mean corpuscular xyaynk4933-55-99 05:30:00* Test Item Value Reference Range Interpretation Comments Mean Corpuscular Volume (test code = 787-2) 90.9 81-99 [facility] HospitalAutomated erythrocyte mean corpuscular hemoglobin (mass per erythrocyte)2019-11-22 05:30:00* Test Item Value Reference Range Interpretation Comments Mean Corpuscular Hemoglobin (test code = 785-6) 29.4 28-32 [facility] HospitalAutomated erythrocyte mean corpuscular hemoglobin concentration measurement (mass/volume)2019-11-22 05:30:00* Test Item Value Reference Range Interpretation Comments Mean Corpuscular Hemoglobin Concent (test code = 786-4) 32.3 31-35 [facility] HospitalRDW KmqRv-Jab5282-66-06 05:30:00* Test Item Value Reference Range Interpretation Comments Red Cell Distribution Width (test code = 91359-9) 12.3 11.7 -14.4 [facility] HospitalAutomated blood platelet count (count/volume)2019-11-22 05:30:00* Test Item Value Reference Range Interpretation Comments Platelet Count (test code = 777-3) 277 140-360 [facility] HospitalAutomated blood segmented neutrophil count as percentage of total gxppzpicdy7996-08-46 05:30:00* Test Item Value Reference Range Interpretation Comments Neutrophils (%) (Auto) (test code = 29312-3) 61.6 38.7-80.0 [facility] HospitalAutomated blood lymphocyte count as percentage ot total aastethchg0149-23-46 05:30:00* Test Item Value Reference Range Interpretation Comments Lymphocytes (%) (Auto) (test code = 736-9) 20.3 18.0-39.1 [facility] HospitalAutomated blood monocyte count as percentage of total wfgmwgkjop5886-53-38 05:30:00* Test Item Value Reference Range Interpretation Comments Monocytes (%) (Auto) (test code = 5905-5) 10.4 4.4-11.3 [facility] HospitalAutomated blood eosinophil count as percentage of total ssavfstvod3924-32-67 05:30:00* Test Item Value Reference Range Interpretation Comments Eosinophils (%) (Auto) (test code = 713-8) 6.5 0.0-6.0 [facility] HospitalAutomated blood basophil count as percentage of total saduzaavel3925-74-62 05:30:00* Test Item Value Reference Range Interpretation Comments Basophils (%) (Auto) (test code = 706-2) 0.8 0.0-1.0 [facility] HospitalFluoroscopic procedure less than one hour ophnoeby1785-06-73 05:30:00* Test Item Value Reference Range Interpretation Comments IM GRANULOCYTES % (test code = IM GRANULOCYTES %) 0.4 0.0- 1.0 [facility] HospitalAutomated blood neutrophil count 2019-11-22 05:30:00* Test Item Value Reference Range Interpretation Comments Neutrophils # (Auto) (test code = 751-8) 4.8 2.1-6.9 [facility] HospitalBlood lymphocytes count (number/volume) 2019-11-22 05:30:00* Test Item Value Reference Range Interpretation Comments Lymphocytes # (Auto) (test code = 21187-0) 1.6 1.0-3.2 [facility] HospitalBlood monocytes automated count (number/volume)2019-11-22 05:30:00* Test Item Value Reference Range Interpretation Comments Monocytes # (Auto) (test code = 742-7) 0.8 0.2-0.8 [facility] HospitalAutomated blood eosinophil count 2019-11-22 05:30:00* Test Item Value Reference Range Interpretation Comments Eosinophils # (Auto) (test code = 711-2) 0.5 0.0-0.4 [facility] HospitalAutomated blood basophil count (count/volume)2019-11-22 05:30:00* Test Item Value Reference Range Interpretation Comments Basophils # (Auto) (test code = 704-7) 0.1 0.0-0.1 [facility] HospitalFluoroscopic procedure less than one hour vhxahjnq7578-68-17 05:30:00* Test Item Value Reference Range Interpretation Comments Absolute Immature Granulocyte (auto (sirisha t code = Absolute Immature Granulocyte (auto) 0.03 0-0.1 [facility] or plasma sodium measurement (moles/volume)2019-11-22 05:30:00* Test Item Value Reference Range Interpretation Comments Sodium Level (test code = 2951-2) 138 136-145 [facility] or plasma potassium measurement (moles/volume)2019-11-22 05:30:00* Test Item Value Reference Range Interpretation Comments Potassium Level (test code = 2823-3) 4.4 3.5-5.1 [facility] or plasma chloride measurement (moles/volume)2019-11-22 05:30:00* Test Item Value Reference Range Interpretation Comments Chloride Level (test code = 2075-0) 104 98-107 [facility]ester[facility] or plasma carbon dioxide, total measurement (moles/volume)2019-11-22 05:30:00* Test Item Value Reference Range Interpretation Comments Carbon Dioxide Level (test code = 2028-9) 25 22-29 [facility] or plasma anion fxa8815-93-92 05:30:00* Test Item Value Reference Range Interpretation Comments Anion Gap (test code = 83167-0) 13.4 8-16 [facility] or plasma urea nitrogen measurement (mass/volume)2019-11-22 05:30:00* Test Item Value Reference Range Interpretation Comments Blood Urea Nitrogen (test code = 3094-0) 7 7-26 [facility] or plasma creatinine measurement (mass/volume)2019-11-22 05:30:00* Test Item Value Reference Range Interpretation Comments Creatinine (test code = 2160-0) 0.79 0.72-1.25 [facility] or plasma urea nitrogen/creatinine mass tcoqy6891-08-70 05:30:00* Test Item Value Reference Range Interpretation Comments BUN/Creatinine Ratio (test code = 3097-3) 9 6-25 [facility] HospitalEstimated glomerular filtration rate (GFR) iguuwpqgdusem0256-44-83 05:30:00* Test Item Value Reference Range Interpretation Comments Estimat Glomerular Filtration Rate (test code = 195881821) > 60 >60 Ranges were taken from the National Kidney Disease Education Program and the [facility] Foundation literature.Reference ranges:60 or greater: Bcipux46-70 ( for 3 consecutive months): Chronic kidney disease 15 or less: Kidney failureSt. Luke's Baptist HospitalGlucose ndffewdxccz5471-82-01 05:30:00* Test Item Value Reference Range Interpretation Comments Glucose Level (test code = CRA0644) 117 74-118 [facility] or plasma calcium measurement (mass/volume)2019-11-22 05:30:00* Test Item Value Reference Range Interpretation Comments Calcium Level (test code = 66637-7) 8.0 8.4-10.2 [facility] 11:04:00 [facility] [address] [address] Patient Name: MIRA MCCORMICK MR #: [id number] : 1955 Age/Sex: 64/M Req #: [id number] Adm Physician: TONIA ALONZO MD Ordered by: THOMAS WILSON MD Report #: [id number] Location: MED/SURG Room/Bed: 07-16 Procedure: [id number] DX/ABDOMEN-1VIEW (KU B) Exam Date: 11/21/19 Exam Time: 09 REPORT STATUS: Signed EXAM: Abdomen Radiograp h [...] 11:07 AM Dictated By: ROBERT RODRIGUEZ MD 1107 Trans cribed By: GERALDINE on 11/21/19 1107 COPY TO: THOMAS WILSON MD ABDOMEN-1VIEW (KUB)2019-11-20 09:13:00 [facility] [address] [address] Patient Name: MIRA MCCORMICK MR #: [id number] : 1955 Age/Sex: 64/M Req #: [id number] Adm Physician: TONIA ALONZO MD Ordered by: TONIA ALONZO MD Report #: [id number] Location: MED/SURG Room/Bed: [facility] Procedure: [id number] DX/ABDOMEN-1VIEW (K UB) Exam Date: 11/20/19 Exam [...] MD Fluoroscopic procedure less than one hour pnjytlpk0371-88-73 05:25:00* Test Item Value Reference Range Interpretation Comments Hemoglobin A1c Percent (test code = Hemoglobin A1c Percent) 5.8 4.0-7.0 [facility] triglyceride measurement (mass/volume)2019-11-17 05:25:00* Test Item Value Reference Range Interpretation Comments Triglycerides Level (test code = 2571-8) 86 0-149 [facility] plasma cholesterol measurement (mass/volume)2019-11-17 05:25:00* Test Item Value Reference Range Interpretation Comments Cholesterol Level (test code = 2093-3) 157 0-199 Less than 200 mg/dL Low Ellz726 - 239 mg/dL Borderline Fuly417 m g/dl and greater High Risk [facility] cholesterol in LDL measurement (mass/volume) 2019-11-17 05:25:00* Test Item Value Reference Range Interpretation Comments LDL Cholesterol (test code = 2089-1) 91 60-130 [facility] or plasma cholesterol in HDL measurement (mass/volume)2019-11-17 05:25:00* Test Item Value Reference Range Interpretation Comments HDL Cholesterol (test code = 2085-9) 49 40-60 [facility] total cholesterol/cholesterol in HDL mass [id number] 05:25:00* Test Item Value Reference Range Interpretation Comments Cholesterol/HDL Ratio (test code = 9830-1) 3.2 3.9-4.7 [facility] [id number] 05:25:00* Test Item Value Reference Range Interpretation Comments Hemoglobin A1c Percent (test code = Hemoglobin A1c Percent) 5.8 4.0-7.0 [facility] triglyceride measurement (mass/volume)2019-11-17 05:25:00* Test Item Value Reference Range Interpretation Comments Triglycerides Level (test code = 2571-8) 86 0-149 [facility] cholesterol measurement (mass/volume)2019-11-17 05:25:00* Test Item Value Reference Range Interpretation Comments Cholesterol Level (test code = 2093-3) 157 0-199 Less than 200 mg/dL Low Bmzl773 - 239 mg/dL Borderline Rmnz765 m g/dl and greater High Risk [facility] cholesterol in LDL measurement (mass/volume) 2019-11-17 05:25:00* Test Item Value Reference Range Interpretation Comments LDL Cholesterol (test code = 2089-1) 91 60-130 [facility] cholesterol in HDL measurement (mass/volume)2019-11-17 05:25:00* Test Item Value Reference Range Interpretation Comments HDL Cholesterol (test code = 2085-9) 49 40-60 [facility] total cholesterol/cholesterol in HDL mass [id number] 05:25:00* Test Item Value Reference Range Interpretation Comments Cholesterol/HDL Ratio (test code = 9830-1) 3.2 3.9-4.7 [facility] magnesium measurement (mass/volume)2019-11-16 16:05:00* Test Item Value Reference Range Interpretation Comments Magnesium Level (test code = 52839-5) 1.8 1.3-2.1 [facility] magnesium measurement (mass/volume)2019-11-16 16:05:00* Test Item Value Reference Range Interpretation Comments Magnesium Level (test code = 95267-6) 1.8 1.3-2.1 [facility] one hour [id number] 13:48:00* Test Item Value Reference Range Interpretation Comments Coronavirus (PCR) (test code = Coronavirus (PCR)) NOT DETECTED NOTD ETECTED Expa Aptima SARS-CoV-2 assay is a nucleic amplification test intended for the qualitative detection of RNA from SARS-CoV-2 from nasopharyngeal ([employer]) specimens . It is used under Emergency [...] reprat testing oc clinically indicated.Tesing performed by:[facility] [address] [place] [address] [id number], Kristine Curry MD, PhD [facility] than one hour [id number] 13:48:00* Test Item Value Reference Range Interpretation Comments Coronavirus (PCR) (test code = Coronavirus (PCR)) NOT DETECTED NOTD ETECTED Expa Aptima SARS-CoV-2 assay is a nucleic amplification test intended for the qualitative detection of RNA from SARS-CoV-2 from nasopharyngeal ([employer]) specimens . It is used under Emergency [...] reprat testing oc clinically indicated.Tesing performed by:[facility] [address] [place] [address] [id number], Kristine Curry MD, PhD [facility] 2 [id number] 13:46:00 [facility] [address] [place] [address] Patient Name: MIRA MCCORMICK MR #: [id number] : 1955 Age/Sex: 64/M Req #: [id number] Adm Physician: Ordered by: THOMAS WILSON MD Report #: [id number] Location: OR Room/Bed: Procedure: [id number] DX/CHEST 2 VIEWS Ex am Date: 11/11/19 [...] Bilirubin (test code = 1975-2) 0.5 0.2-1.2 [facility] one hour [id number] 12:41:00* Test Item Value Reference Range Interpretation Comments Aspartate Amino Transf (AST/SGOT) (test code = Aspartate Amino Transf (AST/SGOT)) 25 5-34 [facility] alanine aminotransferase measurement (enzymatic activity/volume)2019-11-11 12:41:00* Test Item Value Reference Range Interpretation Comments Alanine Aminotransferase (ALT/SGPT) (test code = 1742-6) 31 0-55 [facility] protein measurement (mass/volume)2019-11-11 12:41:00* Test Item Value Reference Range Interpretation Comments Total Protein (test code = 2885-2) 7.2 6.5-8.1 [facility] albumin measurement (mass/volume)2019-11-11 12:41:00* Test Item Value Reference Range Interpretation Comments Albumin (test code = 1751-7) 3.9 3.5-5.0 [facility] (mass/volume) 2019-11-11 12:41:00* Test Item Value Reference Range Interpretation Comments Globulin (test code = 08828-1) 3.3 2.3-3.5 [facility] albumin/globulin mass [id number] 12:41:00* Test Item Value Reference Range Interpretation Comments Albumin/Globulin Ratio (test code = 1759-0) 1.2 0.8-2.0 [facility] alkaline phosphatase measurement (enzymatic activity/volume)2019-11-11 12:41:00* Test Item Value Reference Range Interpretation Comments Alkaline Phosphatase (test code = 6768-6) 74 40-150 [facility] total bilirubin measurement (mass/volume)2019-11-11 12:41:00* Test Item Value Reference Range Interpretation Comments Total Bilirubin (test code = 1975-2) 0.5 0.2-1.2 [facility] than one hour alsghync1923-95-62 12:41:00* Test Item Value Reference Range Interpretation Comments Aspartate Amino Transf (AST/SGOT) (test code = Aspartate Amino Transf (AST/SGOT)) 25 5-34 [facility] alanine aminotransferase measurement (enzymatic activity/volume)2019-11-11 12:41:00* Test Item Value Reference Range Interpretation Comments Alanine Aminotransferase (ALT/SGPT) (test code = 1742-6) 31 0-55 [facility] protein measurement (mass/volume)2019-11-11 12:41:00* Test Item Value Reference Range Interpretation Comments Total Protein (test code = 2885-2) 7.2 6.5-8.1 [facility] albumin measurement (mass/volume)2019-11-11 12:41:00* Test Item Value Reference Range Interpretation Comments Albumin (test code = 1751-7) 3.9 3.5-5.0 [facility] (mass/volume) 2019-11-11 12:41:00* Test Item Value Reference Range Interpretation Comments Globulin (test code = 44250-0) 3.3 2.3-3.5 [facility] albumin/globulin mass [id number] 12:41:00* Test Item Value Reference Range Interpretation Comments Albumin/Globulin Ratio (test code = 1759-0) 1.2 0.8-2.0 [facility] alkaline phosphatase measurement (enzymatic activity/volume)2019-11-11 12:41:00* Test Item Value Reference Range Interpretation Comments Alkaline Phosphatase (test code = 6768-6) 74 40-150 [facility] [id number] 15:45:00 [facility] [address] [address] Patient Name: MIRA MCCORMICK MR #: [id number] : 1955 Age/Sex: 63/M Req #: [id number] Adm Physician: Ordered by: THOMAS WILSON MD Report #: [id number] Location: OR Room/Bed: Procedure: [id number] DX/CHEST 2 VIEWS Ex am Date: 08/07/19 [...] 3:45 PM Dictated By: FABI BURGESS MD [id number] Transcr ibed By: GERALDINE on 08/07/19 4810 COPY TO: THOMAS WILSON MD
== END 2020-01-16 19:05 | disposition home or self-care (01) ==
LOC: ER 18:52
DX: T83.011A Breakdown (mechanical) of indwelling urethral catheter, initial encounter (principal); Z46.6 Encounter for fitting and adjustment of urinary device; I10 Essential (primary) hypertension; K21.9 Gastro-esophageal reflux disease without esophagitis; G47.30 Sleep apnea, unspecified
CPT/HCPCS: 99283

== ENCOUNTER 2020-08-12 09:32 | Inpatient (IN) | payer MEDICARE ==
[2020-08-09 10:23] LABS: BASOPHILS # (AUTO) 0.1 (0.0-0.1); BASOPHILS % 0.7 % (0.0-1.0); EOSINOPHILS # (AUTO) 0.3 (0.0-0.4); HEMATOCRIT 41.6 % (38.2-49.6); HEMOGLOBIN 13.6 g/dL (14.0-18.0); LYMPHOCYTES % 21.3 % (18.0-39.1); MEAN CORPUSCULAR HEMOGLOBIN 29.9 pg (28-32); MEAN CORPUSCULAR HGB CONC 32.7 g/dL (31-35); MEAN CORPUSCULAR VOLUME 91.4 fL (81-99); MONOCYTES # (AUTO) 0.7 (0.2-0.8); MONOCYTES % 7.6 % (4.4-11.3); NEUTROPHILS # (AUTO) 6.4 (2.1-6.9); NEUTROPHILS % 66.9 % (38.7-80.0); PLATELET COUNT 246 x10e3/uL (140-360); RED BLOOD COUNT 4.55 x10e6/uL (4.3-5.7); RED CELL DISTRIBUTION WIDTH 12.6 % (11.7-14.4)
[~2020-08-12] VITALS: Ht 170.2 cm; Wt 95.3 kg
[~2020-08-12 09:32] MED LIST changes: +DOXAZOSIN MESYLA4 MG PO; +FUROSEMIDE40 MG PO; +KLOR-CON 1010 MEQ PO
[2020-08-12] MEDS ORDERED: SODIUM CHLORIDE 0.9% 1000ML 1,000 ML ONE (09:46)
[2020-08-12] MEDS ORDERED: CEFTRIAXONE SOD 1 GM VIAL ONE (10:09)
[2020-08-12] MEDS ORDERED: GENTAMICIN 80MG/NS 100 ML 200 ML IV ONE (10:10)
[2020-08-12] MEDS ORDERED: SODIUM CHLORIDE 0.9% 50ML 50 ML ONE (10:10)
[2020-08-12] MEDS ORDERED: B&O 60MG R/S 60 MG SUPP PR ONE (12:43)
[2020-08-12] MEDS ORDERED: IOPAMIDOL 300MG/ML 50ML INFUS..BTL IV ONE (12:43)
[2020-08-12] MEDS ORDERED: MIDAZOLAM HCL 2 MG/2 ML VIAL ONE (13:43)
[2020-08-12] MEDS ORDERED: FENTANYL CITRATE/PF 100MCG/2 ML INJ ONE (13:43)
[2020-08-12] MEDS ORDERED: MEPERIDINE HCL INJ 25 MG/ML VIAL ONE (13:51)
[2020-08-12] MEDS ORDERED: CEFTRIAXONE SOD 1 GM VIAL IV SCH (14:00)
[2020-08-12] MEDS ORDERED: DIPHENHYDRAMINE HCL 25 MG CAP PO PRN (14:00)
[2020-08-12] MEDS ORDERED: B&O 60MG R/S 60 MG SUPP PR PRN (14:00)
[2020-08-12] MEDS ORDERED: PHENAZOPYRIDINE HCL 100 MG TAB PO PRN (14:00)
[2020-08-12] MEDS ORDERED: ONDANSETRON HCL INJ 2MG/ML 2ML 2 MG/ML VIAL IV PRN (14:00)
[2020-08-12 14:43] LABS: BASOPHILS # (AUTO) 0.1 (0.0-0.1); BASOPHILS % 0.4 % (0.0-1.0); EOSINOPHILS # (AUTO) 0.2 (0.0-0.4); EOSINOPHILS % 1.5 % (0.0-6.0); HEMATOCRIT 38.9 % (38.2-49.6); HEMOGLOBIN 12.6 g/dL (14.0-18.0); LYMPHOCYTES % 16.1 % (18.0-39.1); MEAN CORPUSCULAR HEMOGLOBIN 30.4 pg (28-32); MEAN CORPUSCULAR HGB CONC 32.4 g/dL (31-35); MEAN CORPUSCULAR VOLUME 93.7 fL (81-99); MONOCYTES # (AUTO) 0.3 (0.2-0.8); MONOCYTES % 2.6 % (4.4-11.3); NEUTROPHILS # (AUTO) 9.7 (2.1-6.9); NEUTROPHILS % 78.9 % (38.7-80.0); PLATELET COUNT 196 x10e3/uL (140-360); RED BLOOD COUNT 4.15 x10e6/uL (4.3-5.7); RED CELL DISTRIBUTION WIDTH 12.8 % (11.7-14.4)
[2020-08-12 14:59] LABS: ANION GAP 12.9 mmol/L (8-16); BLOOD UREA NITROGEN 25 mg/dL (7-26); BUN/CREATININE RATIO 36 (6-25); CALCIUM 7.7 mg/dL (8.4-10.2); CARBON DIOXIDE 19 mmol/L (22-29); CHLORIDE 113 mmol/L (98-107); CREATININE, SERUM 0.69 mg/dL (0.72-1.25); EST GLOMERULAR FILTRATION RATE > 60 ML/MIN (60-); GLUCOSE 110 mg/dL (74-118); POTASSIUM 3.9 mmol/L (3.5-5.1); SODIUM 141 mmol/L (136-145)
[2020-08-12 15:40] VITALS: BP 136/75
[2020-08-12 16:49] VITALS: BP 148/76
[2020-08-12] MEDS: DOCUSATE SODIUM 100 MG CAP PO SCH (17:11)
[2020-08-12 17:19] VITALS: BP 148/76
[2020-08-12] MEDS ORDERED: ONDANSETRON HCL INJ 2MG/ML 2ML 2 MG/ML VIAL ONE (17:21)
[2020-08-12] MEDS ORDERED: POVIDONE IODINE 0.05% 0.05 % ML PO ONE (17:21)
[2020-08-12] MEDS ORDERED: DEXAMETHASONE SOD PHOS INJ 4 MG/ML VIAL ONE (17:21)
[2020-08-12] MEDS ORDERED: PROPOFOL IV EMULSION 10 MG/ML 20 ML VIAL ONE (17:21)
[2020-08-12] MEDS ORDERED: LIDOCAINE HCL 2% JELLY 5 ML TUBE ONE (17:21)
[2020-08-12] MEDS ORDERED: SEVOFLURANE INHAL SOLN 250 ML PEN BTL ONE (17:21)
[2020-08-12] MEDS ORDERED: LIDOCAINE HCL 2% LOCAL INJ 5 ML SDV VIAL INJ ONE (17:21)
[2020-08-12 17:23] VITALS: BP 148/76
[2020-08-12] MEDS: D5.45%NS/KCL 20MEQ 1,000 ML IV SCH ×2 (17:26→22:00)
[2020-08-12 20:00] VITALS: BP 123/57
[2020-08-12 21:32] VITALS: BP 123/57
[2020-08-13] VITALS (9 sets, daily range): BP systolic 110–148; BP diastolic 52–82
[2020-08-13] MEDS: D5.45%NS/KCL 20MEQ 1,000 ML IV SCH (01:57)
[2020-08-13] MEDS: ACETAMINOPHEN/CODEINE 300MG - 30MG TAB PO PRN ×2 (01:57→17:20)
[2020-08-13 05:15] LABS: BASOPHILS % 0.3 % (0.0-1.0); EOSINOPHILS % 0.1 % (0.0-6.0); HEMATOCRIT 38.6 % (38.2-49.6); HEMOGLOBIN 12.4 g/dL (14.0-18.0); LYMPHOCYTES # (AUTO) 1.2 (1.0-3.2); LYMPHOCYTES % 8.5 % (18.0-39.1); MEAN CORPUSCULAR HEMOGLOBIN 29.7 pg (28-32); MEAN CORPUSCULAR HGB CONC 32.1 g/dL (31-35); MEAN CORPUSCULAR VOLUME 92.6 fL (81-99); MONOCYTES # (AUTO) 0.8 (0.2-0.8); MONOCYTES % 5.8 % (4.4-11.3); NEUTROPHILS # (AUTO) 11.5 (2.1-6.9); NEUTROPHILS % 84.6 % (38.7-80.0); PLATELET COUNT 222 x10e3/uL (140-360); RED BLOOD COUNT 4.17 x10e6/uL (4.3-5.7); RED CELL DISTRIBUTION WIDTH 12.6 % (11.7-14.4)
[2020-08-13 05:36] LABS: ANION GAP 11.5 mmol/L (8-16); BLOOD UREA NITROGEN 20 mg/dL (7-26); BUN/CREATININE RATIO 29 (6-25); CARBON DIOXIDE 21 mmol/L (22-29); CHLORIDE 110 mmol/L (98-107); CREATININE, SERUM 0.69 mg/dL (0.72-1.25); EST GLOMERULAR FILTRATION RATE > 60 ML/MIN (60-); GLUCOSE 186 mg/dL (74-118); POTASSIUM 4.5 mmol/L (3.5-5.1); SODIUM 138 mmol/L (136-145)
[2020-08-13] MEDS ORDERED: DOCUSATE SODIUM 100 MG CAP PO PRN (08:15)
[2020-08-13] MEDS ORDERED: ZOLPIDEM TARTRATE 5 MG TAB PO PRN (08:15)
[2020-08-13] MEDS ORDERED: ACETAMINOPHEN 325 MG TAB PO PRN (08:15)
[2020-08-13] MEDS: DOCUSATE SODIUM 100 MG CAP PO SCH ×2 (08:37→16:31)
[2020-08-13] MEDS: CEFTRIAXONE SOD 1 GM in SODIUM CHLORIDE 0.9% 50ML 50 ML IV SCH (08:38)
[2020-08-13] MEDS: SODIUM CHLORIDE 0.9% 1000ML 1,000 ML IV SCH ×2 (10:07→16:31)
[2020-08-14] VITALS: BP 106/57
[2020-08-14] MEDS: SODIUM CHLORIDE 0.9% 1000ML 1,000 ML IV SCH ×2 (02:28→07:54)
[2020-08-14 04:00] VITALS: BP 138/69
[2020-08-14 04:47] LABS: BASOPHILS # (AUTO) 0.1 (0.0-0.1); BASOPHILS % 0.7 % (0.0-1.0); EOSINOPHILS # (AUTO) 0.3 (0.0-0.4); EOSINOPHILS % 3.1 % (0.0-6.0); HEMATOCRIT 36.4 % (38.2-49.6); LYMPHOCYTES # (AUTO) 2.1 (1.0-3.2); LYMPHOCYTES % 21.4 % (18.0-39.1); MEAN CORPUSCULAR HEMOGLOBIN 30.2 pg (28-32); MEAN CORPUSCULAR VOLUME 91.7 fL (81-99); MONOCYTES # (AUTO) 0.7 (0.2-0.8); MONOCYTES % 7.4 % (4.4-11.3); NEUTROPHILS # (AUTO) 6.5 (2.1-6.9); NEUTROPHILS % 66.8 % (38.7-80.0); PLATELET COUNT 195 x10e3/uL (140-360); RED BLOOD COUNT 3.97 x10e6/uL (4.3-5.7); RED CELL DISTRIBUTION WIDTH 12.7 % (11.7-14.4)
[2020-08-14 05:10] LABS: BLOOD UREA NITROGEN 16 mg/dL (7-26); BUN/CREATININE RATIO 23 (6-25); CARBON DIOXIDE 21 mmol/L (22-29); CHLORIDE 109 mmol/L (98-107); CREATININE, SERUM 0.71 mg/dL (0.72-1.25); EST GLOMERULAR FILTRATION RATE > 60 ML/MIN (60-); GLUCOSE 102 mg/dL (74-118); SODIUM 137 mmol/L (136-145)
[2020-08-14 05:11] LABS: CALCIUM 7.8 mg/dL (8.4-10.2)
[2020-08-14] MEDS: CEFTRIAXONE SOD 1 GM in SODIUM CHLORIDE 0.9% 50ML 50 ML IV SCH (07:53)
[2020-08-14] MEDS: DOCUSATE SODIUM 100 MG CAP PO SCH (07:53)
[2020-08-14 08:21] VITALS: BP 116/58
[2020-08-14 08:46] VITALS: BP 116/58
[2020-08-14] MEDS: ACETAMINOPHEN/CODEINE 300MG - 30MG TAB PO PRN (10:07)
[2020-08-14 11:51] VITALS: BP 125/62
== END 2020-08-14 14:00 | disposition home or self-care (01) | DRG 713 ==
LOC: OR 09:32 → PACU V 13:51 → MED/SURG 14:55
PROVIDERS: ADMIT Internal Medicine; ATTEND Internal Medicine
PROC: 0T788ZZ Dilation of Bilateral Ureters, Via Natural or Artificial Opening Endoscopic (ICD-10-PCS; 2020-08-12)
PROC: 0T7D8ZZ Dilation of Urethra, Via Natural or Artificial Opening Endoscopic (ICD-10-PCS; principal; 2020-08-12 12:00)
PROC: 0V508ZZ Destruction of Prostate, Via Natural or Artificial Opening Endoscopic (ICD-10-PCS; 2020-08-12 12:00)
PROC: BT141ZZ Fluoroscopy of Kidneys, Ureters and Bladder using Low Osmolar Contrast (ICD-10-PCS; 2020-08-12 12:00)
DX: N40.1 Benign prostatic hyperplasia with lower urinary tract symptoms (principal); N13.8 Other obstructive and reflux uropathy; N39.0 Urinary tract infection, site not specified; N35.919 Unspecified urethral stricture, male, unspecified site; R31.29 Other microscopic hematuria; Z87.440 Personal history of urinary (tract) infections; E66.9 Obesity, unspecified; Z68.32 Body mass index [BMI] 32.0-32.9, adult; Z87.891 Personal history of nicotine dependence
CPT/HCPCS: 36415; 74420; 80048; 80061; 83036; 83735; 85025; 93005; C1758; J0696; J1100; J1580; J2001; J2175; J2250; J2405; J3010; J7030; U0002

== ENCOUNTER 2023-11-08 21:31 | Emergency (ER) | payer MEDICARE ==
[~2023-11-08] VITALS: Ht 170.2 cm; Wt 95.3 kg
[2023-11-08 21:39] VITALS: PULSE 89; RESP 18; TEMP 98.2
[2023-11-08] MEDS: SODIUM CHLORIDE 0.9% 1000ML 1,000 ML IV STA (22:11)
[2023-11-08 22:12] LABS: BASOPHILS % 0.6 % (0.0-1.0); EOSINOPHILS # (AUTO) 0.2 (0.0-0.4); HEMATOCRIT 41.5 % (38.2-49.6); HEMOGLOBIN 13.6 g/dL (14.0-18.0); LYMPHOCYTES # (AUTO) 1.4 (1.0-3.2); MEAN CORPUSCULAR HEMOGLOBIN 30.7 pg (28-32); MEAN CORPUSCULAR HGB CONC 32.8 g/dL (31-35); MEAN CORPUSCULAR VOLUME 93.7 fL (81-99); MONOCYTES # (AUTO) 0.6 (0.2-0.8); MONOCYTES % 9.4 % (4.4-11.3); NEUTROPHILS # (AUTO) 4.3 (2.1-6.9); NEUTROPHILS % 65.7 % (38.7-80.0); PLATELET COUNT 253 x10e3/uL (140-360); RED BLOOD COUNT 4.43 x10e6/uL (4.3-5.7); RED CELL DISTRIBUTION WIDTH 12.6 % (11.7-14.4); WHITE BLOOD COUNT 6.58 x10e3/uL (4.8-10.8)
[2023-11-08 22:24] LABS: BILIRUBIN,URINE NEGATIVE (NEGATIVE); CLARITY,URINE CLEAR (CLEAR); COLOR,URINE YELLOW (YELLOW); GLUCOSE, URINE NEGATIVE (NEGATIVE); KETONES,URINE NEGATIVE (NEGATIVE); LEUKOCYTE ESTERASE ,URINE NEGATIVE (NEGATIVE); NITRITE,URINE NEGATIVE (NEGATIVE); PH,URINE 6 (5 - 7); PROTEIN,URINE DIPSTICK NEGATIVE (NEGATIVE); URINE UROBILINOGEN 0.2 mg/dL (0.2 - 1)
[2023-11-08 22:30] LABS: ALBUMIN 3.8 g/dL (3.5-5.0); ALBUMIN/GLOBULIN RATIO 1.1 (0.8-2.0); ANION GAP 12.9 mmol/L (8-16); BILIRUBIN,TOTAL 0.3 mg/dL (0.2-1.2); CALCIUM 9.2 mg/dL (8.4-10.2); CREATININE, SERUM 0.87 mg/dL (0.72-1.25); POTASSIUM 3.9 mmol/L (3.5-5.1); TOTAL PROTEIN 7.2 g/dL (6.5-8.1)
[2023-11-08 22:54] LABS: BACTERIA,URINE MANY /HPF; EPITHELIAL CELLS,URINE FEW /LPF; RBC,URINE 21-50 /HPF (0-5); TRANSITIONAL EPI CELLS,URINE FEW
[2023-11-08 23:39] LABS: TROPONIN I 0.004 ng/mL (0-0.300)
[2023-11-09 00:50] VITALS: BP 150/78; O2SAT 98
== END 2023-11-09 00:48 | disposition home or self-care (01) ==
LOC: ER 21:35
DX: R10.11 Right upper quadrant pain (principal); K59.00 Constipation, unspecified; K57.90 Diverticulosis of intestine, part unspecified, without perforation or abscess without bleeding; G47.30 Sleep apnea, unspecified; Z85.46 Personal history of malignant neoplasm of prostate
CPT/HCPCS: 36415; 74177; 80053; 81001; 82550; 83690; 84484; 85025; 93005; 99284; J7030